=== PATIENT | female | born 1970 | race Caucasian/White ===

== ENCOUNTER 2021-04-27 00:26 | Outpatient (CLI) | payer OTHER, SELFPAY ==
--- NOTE | 2021-04-27 06:30 | DI.MAMMO_ITS ---
Exam(s) MAMMO SCREENING EXAM: MAMMO SCREENING CLINICAL HISTORY: screening,Z12.39 TECHNIQUE: Mammograms were interpreted according to the usual protocol including computer analysis w [employer] CAD system, tomosynthesis and C-view imaging. COMPARISON: 2013 through 2018 [facility] FINDINGS: The breasts are composed of scattered fibroglandular densities, Breast Density category B. No suspicious masses or suspicious microcalcifications are seen. No skin thickening or abnormal axillary lymph nodes are seen. There has been no significant change from prior exams. IMPRESSION: BI-RADS Category 1, Negative mammogram Yearly screening mammography is recommended. Breast Density - Category B, scattered fibroglandular densities. A negative radiographic report should not delay biopsy if a dominant or clinically suspicious mass is present. Up to ten percent of cancers are not identified on mammography. A negative report may reinforce clinical impression. Adenosis and dense breasts may obscure an underlying neoplasm. False positive reports average 6 to 10%. Patient will receive a letter notifying them of these results.
== END 2021-04-27 00:46 ==
PROVIDERS: PCP Student in an Organized Health Care Education/Training Program; Visit Provider Student in an Organized Health Care Education/Training Program
DX: Z12.31 Encounter for screening mammogram for malignant neoplasm of breast (principal)
CPT/HCPCS: 77063; 77067

== ENCOUNTER 2021-05-15 02:01 | Outpatient (CLI) | payer OTHER, SELFPAY ==
[2021-05-15 10:29] LABS: Source Nasal/Nares
[2021-05-15 16:24] LABS: COVID-19 PCR Negative (Negative)
== END 2021-05-15 02:02 | disposition home or self-care (01) ==
LOC: LBO 02:01
PROVIDERS: PCP Student in an Organized Health Care Education/Training Program; Visit Provider Otolaryngology
DX: Z20.822 Contact with and (suspected) exposure to COVID-19 (principal)
CPT/HCPCS: 87635

== ENCOUNTER 2021-05-15 02:13 | Outpatient (CLI) | payer OTHER, SELFPAY ==
[2021-05-15 12:13] LABS: HCT 43.2 % (36.0-46.0); HGB 13.7 g/dL (11.2-15.7); MCH 31.4 pg (27.0-33.0); MCHC 31.7 % (32.0-36.0); MCV 98.9 fL (80-95); MPV 10.6 fL (8.0-11.0); Platelet Count 222 10^3/uL (130-400); RBC 4.37 10^6/uL (3.93-5.22); RDW 12.9 % (11.7-14.6); RDW-SD 47.1 fL; WBC 5.08 10^3/uL (4.4-10.8)
[2021-05-15 12:49] LABS: Vitamin B12 540 pg/mL (193-986)
== END 2021-05-15 02:14 | disposition home or self-care (01) ==
LOC: LOS 02:13
PROVIDERS: PCP Student in an Organized Health Care Education/Training Program; Visit Provider Student in an Organized Health Care Education/Training Program
DX: E03.9 Hypothyroidism, unspecified; K21.9 Gastro-esophageal reflux disease without esophagitis; Z86.2 Personal history of diseases of the blood and blood-forming organs and certain disorders involving the immune mechanism
CPT/HCPCS: 36415; 85027; 82607; 84443

== ENCOUNTER 2021-05-18 06:07 | Day surgery (SDC) | payer OTHER, SELFPAY ==
[2021-05-18] VITALS (10 sets, daily range): BP systolic 80–137; BP diastolic 47–97; PULSE 61–78; RESP 12–16; TEMP 36–36.5; O2SAT 94–99; BMI 37.2
--- NOTE | 2021-05-18 06:49 | W.ANESPRE ---
General Info Date of Service Date Performed: 05/18/21 Height: 5 ft 3 in Weight: 95.3 kg Body Mass Index (BMI): 37.2 Surgical Procedure: Operation Date: 05/18/21 07:40 Proposed Procedures Side Surgeon p Tonsillectomy Jere Persaud DO Meds Allergies and Home Medications Allergies Allergy/AdvReac Type Severity Reaction Status Date / Time No Known Allergies Allergy Verified 05/18/21 06:33 Home Medication Medication Instructions Recorded ferrous gluconate 324 mg (37.5 mg 324 mg PO DAILY 03/06/21 iron) tablet multivitamin 1 tab PO DAILY 03/06/21 omeprazole magnesium 20 mg 20 mg PO DAILY 03/06/21 tablet,delayed release levothyroxine 50 mcg tablet 50 mcg PO DAILY 30 Days #1 tab 04/03/21 cetirizine 10 mg PO DAILY 05/18/21 Current Visit Medications: Current Medications Generic Name Dose Route Start Last Admin Trade Name Freq PRN Reason Stop Dose Admin Ringer's Solution 1,000 mls @ 80 mls/hr 05/18/21 06:00 IV 06/16/21 23:59 INFUSION BRONSON IV Miscellaneous Supplies 1 each 05/18/21 06:00 Iv Access IV 06/16/21 23:59 DIRECTED BRONSON Sodium Chloride 0 ml 05/18/21 06:00 Normal Saline Flush 10 Ml Syr IV 06/16/21 23:59 PRN PRN Sodium Chloride 0 ml 05/18/21 06:00 Normal Saline 10 Ml Vial IJ 06/16/21 23:59 DIRECTED PRN Sterile Water 0 ml 05/18/21 06:00 Water,Injection,Sterile 10 Ml Vial IJ 06/16/21 23:59 DIRECTED PRN PFSH Active Problems Active Problems: Problem Status Onset Code Chronic tonsillitis J35.01 Tonsil stone J35.8 Phlegm in throat R09.89 Family history of premature CAD Z82.49 Menopause Z78.0 Vaginal discharge N89.8 History of iron deficiency anemia Z86.2 GERD (gastroesophageal reflux disease) K21.9 Seasonal allergies 04/01/18 J30.2 Hyperlipidemia E78.5 Hypothyroidism 12/01/19 E03.9 Medical History Medical History Allergic rhinitis Asthma 12/16/16 normal spirometry FVC 104% predicted FEV1 of 105% predicted FEV/FVC 85 with lower limit of normal of 70 ACT score 25 Family history of premature CAD Fa w/ [place] @ 43yo (9 stents) .. now healthy @ 73yo.. Hx hyperchol. History of iron deficiency anemia RBC, HGB WNL, 05/15/21. Iron suppl .. [05/2017: Iron 84 (37-170)][01/2017:Iron 28] [01/2017: Ferritin 5 (264)] Hyperlipidemia started atorvastatin 02/13/17-09/26/17, ? why stopped Hypothyroidism (12/01/19) Recent increase, re-check (6wks) @ 05/18 .. [November 2019: TSH 5.85, FT4 0.91][Mar 2020: TSH 2.34, FT4 1.05, FT3 3.3] Phlegm in throat Thickened Phlegm, with tannish colored pebbly exudate (dissolves into powdery substance)(tonsilith?) + Hx allergies and sinus issues . 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 Surgical History Surgical History History of carpal tunnel surgery (~2010) both wrists Tobacco Smoking/Tobacco Use Status: Former Tobacco Use Tobacco: How many years used: 26 Alcohol Alcohol Intake: current Alcohol intake frequency: a few times a week Alcohol type: beer Substance Use Substance use: Never Substance use type: does not use Vital Signs and Lab Results Vital Signs Most Recent Vital Signs in EMR: Most Recent Vital Signs Temp Pulse Resp BP Pulse Ox 36.3 C L 78 16 128/97 H 97 05/18/21 06:24 05/18/21 06:24 05/18/21 06:24 05/18/21 06:24 05/18/21 06:24 Lab Results Blood Type / Crossmatch: No Data to Display Complete Blood Count: White Blood Count 5.08 10^3/uL (4.4-10.8) 05/15/21 10:13 05/15/21 Red Blood Count 4.37 10^6/uL (3.93-5.22) 05/15/21 10:13 05/15/21 Hemoglobin 13.7 g/dL (11.2-15.7) 05/15/21 10:13 05/15/21 Hematocrit 43.2 % (36.0-46.0) 05/15/21 10:13 05/15/21 Platelet Count 222 10^3/uL (130-400) 05/15/21 10:13 05/15/21 Complete Metabolic Panel: No Data to Display Liver Function Panel: No Data to Display Coagulation Panel: No Data to Display Cardiac Panel: No Data to Display Arterial Blood Gas: No Data to Display Venous Blood Gas: No Data to Display Pancreas Panel: No Data to Display Thyroid Panel: Thyroid Stimulating Hormone (TSH) 1.40 uIU/mL (0.36-3.74) 05/15/21 10:13 05/15/21 Infectious Disease: Coronavirus (COVID-19)(PCR) Negative (Negative) 05/15/21 09:34 05/15/21 Coronavirus 2019 Source Nasal/Nares 05/15/21 09:34 05/15/21 Blood Cultures: No Data to Display Toxicology Panel: No Data to Display Panel: No Data to Display Anesthesia Assessment and Plan Anesthesia History Personal History: No History of Anesthesia Complications Family History: No Family History of Anesthesia Complications Exercise Tolerance Exercise Tolerance: Metabolic Equivalents>4 Pertinent Negatives Pertinent Negatives: No Symptoms of GERD and No Major Cardiovascular Symptoms or Complaints Cardiac & Pulmonary Exam Cardiac Exam: Normal S1/S2 Heart Sounds Pulmonary Exam: Clear Bilateral Breath Sounds Airway Exam Known Difficult Airway: No Mallampati Class: 3 Mouth Opening: Normal (> 3cm) Thyromental Distance: Greater than 3 cm Neck Range of Motion: Full ROM Neck Circumference: Normal Teeth Condition: Normal Dentition ASA Classification ASA Score: ASA 2 Emergency Case?: No NPO Status NPO Status: NPO Clears >2 hours, Solids >8 hours Status Status: Not Relevant due to Medical History Anesthesia Plan Resuscitation Status: Full Code Anesthesia Technique: General Anesthesia Airway Planned: Endotracheal Tube Monitors Used: Standard Monitors
[2021-05-18] MEDS: Lactated Ringers 1,000 ML 80 ML IV (06:53)
--- NOTE | 2021-05-18 07:30 | W.PM.DSUDISC ---
Discharge Plan Disposition Patient Disposition: HOME Condition: Good Discharge Details Reason For Visit: or Attending Provider: Jere Persaud Primary Care Provider: Moraima Bush Home Meds and New Rx's Prescriptions: No Action levothyroxine 50 mcg tablet 50 mcg PO DAILY 30 Days Qty: 1 RF: 3 omeprazole magnesium [Prilosec OTC] 20 mg tablet,delayed release (DR/EC) 20 mg PO DAILY RF: 0 multivitamin Tablet 1 tab PO DAILY RF: 0 ferrous gluconate 324 mg (37.5 mg iron) tablet 324 mg PO DAILY RF: 0 cetirizine 10 mg Tablet 10 mg PO DAILY RF: 0 Discharge Instructions Additional Instructions: see sheet Activity:: Activity as Tolerated Remove Dressings/Wound Care:: 24 hours Shower/Bathe:: 24 hours Diet:: As Tolerated DS: Diagnosis Discharge Diagnosis (1) Chronic tonsillitis: Status: Acute (2) Tonsil stone: Status: Acute
--- NOTE | 2021-05-18 07:31 | ROE_ITS ---
Operative Note Operative Note DATE OF PROCEDURE: 05/18/21 PRE-OP DIAGNOSIS: Chronic tonsil stones, halitosis, chronic tonsillitis POST-OP DIAGNOSIS: same PROCEDURE: Tonsillectomy SURGEON: Jere Persaud ANESTHESIA TYPE: General LMA/ETT Refer to Anesthesia Record ESTIMATED BLOOD LOSS: 2 PATHOLOGY: other (Consult) Indications: Patient seen by my physician biology research assistant, complains of chronic halitosis, tonsil stones and tonsillitis decision made for to proceed with [place]. We discussed preoperatively today. Risk of bleeding is 5 to 10%, importance of hydration, pain control, will provide a small amount of narcotics, the patient wishes to avoid these if possible. We discussed 7 to 14 days of full healing. All of her questions were answered preoperatively, she wishes to proceed Findings: 2+ invaginated tonsils, severe stones bilaterally Procedure Description: PROCEDURE IN DETAIL: Patient was brought back to the operating suite in stable condition, placed supine on the operating table, and intubated in normal fashion. The table was rotated 90 degrees. There was no evidence of submucosal clefting or bifid uvula. The McIvor retractor was placed in the oral cavity and suspended from the Forte stand. The right tonsil was grasped in the superior pole and medialized. Pinpoint cautery was used to develop the peritonsillar fascial plane, dissection was carried out to the upper and mid portions of the tonsil with final amputation conducted with suction cautery. There was no bleeding within the right tonsillar fossa. Next, the left tonsil was grasped in the superior pole with a curved Allis forceps and medialized. Pinpoint cautery was used to develop the peritonsillar fascial plane. Dissection was carried out in the plane in the superior and mid portion of the tonsils. Severe tonsil stones bilaterally, multiple left-sided performed, no bleeding. Final amputation was conducted with suction cautery without bleeding within left fossa, Valsalva was performed without bleeding. TMJ's were checked and were free of dislocation. Gastric contents suctioned. The patient tolerated the procedure well and went to PACU in stable condition
--- NOTE | 2021-05-18 07:55 | TONSIL_PTH ---
PATIENT: Irina Arana LOC: [facility] U#:[id number] AGE/SX: 50/F ROOM: RE05/18/[address]: Jere Persaud DO : 1970 BED: DIS: 05/18/2021 SPEC #: [id number] RECD: 05/18/21 12:44 STATUS: ALEXIS REQ #: [id number] TASNEEM: 05/18/21 07:[address]: Jere Persaud DEPT: Surgical Specimen RECD BY: Roseline Payne ENTERED: 05/18/21 12:46 SP TYPE: TONSIL OTHR DR: Moraima Bush DO Tissues: 1 - TONSIL AGE 17 & OVER 2 - TONSIL AGE 17 & OVER Procedures: GROSS AND MICRO LEVEL 3 Comments: [id number]
[2021-05-18] MEDS: Oxymetazolone 0.05% SPRAY 15 ML BTL (07:58)
[2021-05-18] MEDS: fentaNYL 100 MCG/2 ML VIAL IVP (08:50)
--- NOTE | 2021-05-18 10:24 | W.ANESPOSTOP ---
Postoperative Evaluation Date, Time and Location Date Performed: 05/18/21 Time Performed: 10:24 Patient Location: Day Surgery Unit Vital Signs Most Recent Imported Vital Signs: Most Recent Vital Signs Temp Pulse Resp BP Pulse Ox 36.2 C L 65 16 130/73 94 05/18/21 10:03 05/18/21 10:03 05/18/21 10:03 05/18/21 10:03 05/18/21 10:03 Pain Score Most Recent Pain Score: Most Recent Pain Score Pain Level 2 05/18/21 10:03 Assessment Mental Status: Awake (Alert & Oriented to Patient Baseline) Airway and Respiratory Function: Patent airway with normal (patient baseline) respiratory exam Cardiovascular Function: Hemodynamically Stable Hydration Status: Adequately Hydrated Nausea & Vomiting: No Nausea or Vomiting Pain: Pain is tolerable per patient Peripheral Nerve Block: Patient did not receive a nerve block
== END 2021-05-18 11:22 | disposition home or self-care (01) ==
PROVIDERS: PCP Student in an Organized Health Care Education/Training Program; Visit Provider Otolaryngology Otolaryngology/Facial Plastic Surgery
PROC: (CPT 42826; principal; 2021-05-18 07:30)
DX: J35.01 Chronic tonsillitis (principal); K21.9 Gastro-esophageal reflux disease without esophagitis; E03.9 Hypothyroidism, unspecified; E78.5 Hyperlipidemia, unspecified; J35.8 Other chronic diseases of tonsils and adenoids
CPT/HCPCS: 42826; 88304; J1100; J2250; J2405; J2704; J3010

== ENCOUNTER 2022-10-14 11:14 | Day surgery (SDC) | payer OTHER, SELFPAY ==
--- NOTE | 2022-10-13 20:07 | PDOC.DSDIS_ITS ---
Date of service: 10/14/22 Time of Service: 12:57 Discharge Plan Disposition Patient Disposition: Home Condition: Good Discharge Details Reason For Visit: Screening colonoscopy Attending Provider: Constantin Phan Primary Care Provider: Moraima Bush Home Meds and New Rx's Prescriptions: Continued estradiol [Estrace] 0.01 % (0.1 mg/gram) cream 0.5 appful vaginal .COMPLEX Qty: 42.5 4RF Rx Instructions: 0.5 appful vaginal daily for 2 weeks then twice weekly; clobetasol 0.05 % ointment 1 applic topical .COMPLEX Qty: 45 4RF Rx Instructions: 1 applic topical tiny amount to painful areas on vulva daily for 2 weeks then twice weekly; levothyroxine 75 mcg tablet 75 mcg PO DAILY Qty: 90 1RF albuterol sulfate [Proventil HFA] 90 mcg/actuation HFA aerosol inhaler 2 puff inhalation Q6H PRN (Reason: shortness of breath or wheezing) Qty: 8.5 0RF omeprazole magnesium [Prilosec OTC] 20 mg tablet,delayed release (DR/EC) 20 mg PO DAILY multivitamin Tablet 1 tab PO DAILY ferrous gluconate 324 mg (37.5 mg iron) tablet 324 mg PO DAILY cetirizine 10 mg Tablet 10 mg PO DAILY Discontinued polyethylene glycol 3350 17 gram/dose powder 238 g PO ONCE Qty: 238 0RF Rx Instructions: take per colonoscopy instructions bisacodyl [Dulcolax (bisacodyl)] 5 mg tablet,delayed release (DR/EC) 5 mg PO ONCE Qty: 4 0RF Rx Instructions: take per colonoscopy instructions Discharge Instructions Additional Instructions: 1. If tolerated, consume a soft, low fiber diet for 1-2 days. 2[address] Do not drive, drink alcohol, operate machinery, make critical decisions, or do activities that require coordination or balance for 24 hours. 3. Because air was put into your colon during the procedure, expelling air from your rectum (passing gas or farting) is normal. 4. You may not have a bowel movement for 1-3 days because of the colonoscopy pr ep. This is normal. 5. Go directly to the emergency room if you notice any of the following: Develop chills (warm to touch), or if you have a thermometer and your temperature is above 101 Difficulty breathing or difficultly swallowing Persistent vomiting Severe abdominal pain, other than gas cramps Severe chest pain Black, tarry stools Any bleeding ? exceeding one tablespoon 6. Call your physician if the site where your intravenous was started becomes red, swollen, painful, and warm to touch. 7. Your physician has reviewed your pre-procedure medications. Please continue to take those medications as previously ordered. You will be given specific information/education regarding any changes to your medications before leaving. Activity:: Activity as Tolerated Diet:: As Tolerated Discharge Orders Discharge Orders: Discharge Order (Routine); Ordered 10/13/22 Ordered By: Constantin Phan DS: Diagnosis Discharge Diagnosis (1) Screening for colon cancer: Status: Acute Asessment and Plan: I will follow-up on polypectomy results
--- NOTE | 2022-10-13 20:09 | W.COLOREPORT ---
Date of service: 10/14/22 Time of Service: 12:59 Colonoscopy Report Date of procedure: 10/14/22 Pre-op diagnosis general: Screening colonoscopy Post-op diagnosis procedure note: other (Colon polyps) Procedure: Colonoscopy with polypectomy Surgeon: Constantin Phan Anesthesia Type: General:No Airway Estimated blood loss (mL): 10 Pathology: other (Ascending colon polyp, polyp at 40 cm) Complications: None Disposition: same day Indications: Irina is a 51 year old women here for her first screening colonscopy Prep: Miralax/Dulcolax Procedure Start Time: 12:29 Procedure End Time: 12:51 Retraction Time: 12 Findings: A sending colonic polyp, polyp at 40 cm Procedure Description: After the induction of monitored anesthetic care, and with the patient in left lateral decubitus position, I began by performing an external anorectal exam.? Perineum and skin were normal, as was the anal verge.? There was no no evidence of external hemorrhoids.? Next, I performed a digital rectal exam.? I did not appreciate any abnormal findings.? Next, I advanced a colonoscope into the rectal vault.? I performed retroflexion.? This appeared normal.? Using insufflation, I then advanced the colonoscope beyond the rectal folds and into the sigmoid colon before advancing towards the cecum.? The quality of the prep was excellent.? The scope was noted to be in the cecum by identification of the ileocecal valve and appendiceal orifice.? I then began withdrawing the colonoscope using repeated irrigation as necessary for full evaluation of the colonic mucosa. Within the ascending colon was a 0.5 cm pedunculated polyp. I retrieved this with cold snare polypectomy. There was minimal bleeding. Similarly, I found a polyp at 40 cm from the anal verge. I remove this with cold forceps polypectomy. I estimated to be 0.25 cm and sessile in character. Once the scope was withdrawn to the level of the rectum, great care was taken to examine portions of the rectal folds.? Finally, the scope was withdrawn and the patient was brought to the same-day surgery recovery unit as the anesthetic wore off. ?The findings and instructions were shared with the patient prior to discharge.
[2022-10-14 11:39] VITALS: BP 146/97; PULSE 77; RESP 16; TEMP 36.4; O2SAT 97
--- NOTE | 2022-10-14 11:50 | ANES.PREOP_ITS ---
General Info Date of Service Date Performed: 10/14/22 Height: 5 ft 3 in Weight: 99.79 kg Body Mass Index (BMI): 38.9 Surgical Procedure: Operation Date: 10/14/22 12:35 Proposed Procedure Side Surgeon lillie Phan MD Meds Allergies and Home Medications Allergies Allergy/AdvReac Type Severity Reaction Status Date / Time No Known Allergies Allergy Verified 10/14/22 11:37 Home Medication Medication Instructions Recorded ferrous gluconate 324 mg (37.5 mg 324 mg PO DAILY 03/06/21 iron) tablet multivitamin 1 tab PO DAILY 03/06/21 omeprazole magnesium 20 mg 20 mg PO DAILY 03/06/21 tablet,delayed release (Prilosec OTC) cetirizine 10 mg tablet 10 mg PO DAILY 05/18/21 albuterol sulfate 90 mcg/actuation 2 puff inhalation Q6H PRN 12/11/21 aerosol inhaler (Proventil HFA) shortness of breath or wheezing #8.5 grams clobetasol 0.05 % topical ointment 1 applic topical .COMPLEX #45 grams 05/31/22 estradiol 0.01% (0.1 mg/gram) 0.5 appful vaginal .COMPLEX #42.5 05/31/22 vaginal cream (Estrace) grams levothyroxine 75 mcg tablet 75 mcg PO DAILY #90 tabs 05/31/22 Current Visit Medications: Current Medications Generic Name Dose Route Start Last Admin Trade Name Freq PRN Reason Stop Dose Admin Hyoscyamine Sulfate 0.125 mg 10/13/22 20:10 Hyoscyamine 0.125 Mg Sl/Oral/Chew SL DIRECTED PRN Ringer's Solution 1,000 mls @ 80 mls/hr 10/14/22 06:00 IV 10/14/22 23:59 INFUSION BRONSON IV Miscellaneous Supplies 1 each 10/14/22 06:00 Iv Access IV 10/14/22 23:59 DIRECTED BRONSON Ondansetron HCl 4 mg 10/13/22 20:10 Ondansetron 4 Mg/2 Ml Vial IVP Q4H PRN PRN Nausea / Vomiting Sodium Chloride 0 ml 10/14/22 06:00 Normal Saline Flush 10 Ml Syr IV 10/14/22 23:59 PRN PRN Sodium Chloride 0 ml 10/14/22 06:00 Normal Saline 10 Ml Vial IJ 10/14/22 23:59 DIRECTED PRN Sterile Water 0 ml 10/14/22 06:00 Water,Injection,Sterile 10 Ml Vial IJ 10/14/22 23:59 DIRECTED PRN PFSH Active Problems Active Problems: Problem Status Onset Code Screening for colon cancer Z12.11 Lichen sclerosus L90.0 Perimenopausal atrophic vaginitis N95.2 Chronic tonsillitis J35.01 Tonsil stone J35.8 Phlegm in throat R09.89 Family history of premature CAD Z82.49 Menopause Z78.0 Vaginal discharge N89.8 History of iron deficiency anemia Z86.2 GERD (gastroesophageal reflux disease) K21.9 Seasonal allergies 04/01/18 J30.2 Hyperlipidemia E78.5 Hypothyroidism 12/01/19 E03.9 Medical History Medical History Allergic rhinitis Asthma 12/16/16 normal spirometry FVC 104% predicted FEV1 of 105% predicted FEV/FVC 85 with lower limit of normal of 70 ACT score 25 Surgical History Surgical History History of carpal tunnel surgery (~2010) both wrists S/P tonsillectomy (05/18/21) Dr Persaud Tobacco Smoking/Tobacco Use Status: Former Tobacco Use Alcohol Alcohol Intake: current Alcohol intake frequency: a few times a week Alcohol type: beer Substance Use Substance use: Never Substance use type: does not use Prental History History 2 Para 2 Hx # Term Pregnancies 2 Multiple births Hx # Pregnancies Ectopic pregnancies AB induced Hx Number of Living Children AB spontaneous Vital Signs and Lab Results Vital Signs Most Recent Vital Signs in EMR: Most Recent Vital Signs Temp Pulse Resp BP Pulse Ox 36.4 C L 77 16 146/97 H 97 10/14/22 11:39 10/14/22 11:39 10/14/22 11:39 10/14/22 11:39 10/14/22 11:39 Lab Results Blood Type / Crossmatch: No Data to Display Complete Blood Count: No Data to Display Complete Metabolic Panel: No Data to Display Liver Function Panel: No Data to Display Coagulation Panel: No Data to Display Cardiac Panel: No Data to Display Arterial Blood Gas: No Data to Display Venous Blood Gas: No Data to Display Pancreas Panel: No Data to Display Thyroid Panel: No Data to Display Infectious Disease: No Data to Display Blood Cultures: No Data to Display Toxicology Panel: 2 No Data to Display Panel: No Data to Display Anesthesia Assessment and Plan Anesthesia History Personal History: No History of Anesthesia Complications Family History: No Family History of Anesthesia Complications Exercise Tolerance Exercise Tolerance: Metabolic Equivalents>4 Pertinent Negatives Pertinent Negatives: No Symptoms of GERD, No Major Cardiovascular Symptoms or Complaints, No Major Pulmonary Symptoms or Complaints and No History of CVA/TIA Cardiac & Pulmonary Exam Cardiac Exam: Normal S1/S2 Heart Sounds Pulmonary Exam: Clear Bilateral Breath Sounds Implantable Cardiac Device Does patient have a Pacemaker or an ICD?: No Airway Exam Known Difficult Airway: No Mallampati Class: 3 Mouth Opening: Normal (> 3cm) Thyromental Distance: Greater than 3 cm Neck Range of Motion: Full ROM Neck Circumference: Normal Teeth Condition: Normal Dentition ASA Classification ASA Score: ASA 3 Emergency Case?: No NPO Status NPO Status: NPO Clears >2 hours, Solids >8 hours Status Status: Not Relevant due to Medical History Anesthesia Plan Resuscitation Status: Full Code Anesthesia Technique: General Anesthesia Airway Planned: Natural Airway Monitors Used: Standard Monitors
[2022-10-14 12:00] VITALS: BMI 38.9
[2022-10-14] MEDS: Lactated Ringers 1,000 ML 80 ML IV (12:11)
--- NOTE | 2022-10-14 12:40 | BOWEL_PTH ---
PATIENT: Irina Arana LOC: [facility] U#:[id number] AGE/SX: 51/F ROOM: RE10/14/[address]: Constantin Phan MD : 1970 BED: DIS: 10/14/2022 SPEC #: [id number] RECD: 10/14/22 18:16 STATUS: LUIS ELyly RE #: [id number] TASNEEM: 10/14/22 12:[address]: Constantin Phan DEPT: Surgical Specimen RECD BY: Roseline Payne ENTERED: 10/14/22 18:17 SP TYPE: Bowel OTHR DR: Moraima Bush DO Tissues: 1 - BIOPSY BOWEL 2 - BIOPSY BOWEL Procedures: GROSS AND MICRO LEVEL 4 Comments: [id number]
[2022-10-14 12:56] VITALS: BP 135/88; PULSE 77; RESP 16; TEMP 36.5; O2SAT 97
--- NOTE | 2022-10-14 13:13 | W.ANESPOSTOP ---
Postoperative Evaluation Date, Time and Location Date Performed: 10/14/22 Time Performed: 13:13 Patient Location: Day Surgery Unit Vital Signs Most Recent Imported Vital Signs: Most Recent Vital Signs Temp Pulse Resp BP Pulse Ox 36.5 C 77 16 135/88 97 10/14/22 12:56 10/14/22 12:56 10/14/22 12:56 10/14/22 12:56 10/14/22 12:56 Pain Score Most Recent Pain Score: Most Recent Pain Score Pain Level 0 10/14/22 12:56 Assessment Mental Status: Awake (Alert & Oriented to Patient Baseline) Airway and Respiratory Function: Patent airway with normal (patient baseline) respiratory exam Cardiovascular Function: Hemodynamically Stable Hydration Status: Adequately Hydrated Nausea & Vomiting: No Nausea or Vomiting Pain: Pt. Denies Any Pain Peripheral Nerve Block: Patient did not receive a nerve block
[2022-10-14 13:25] VITALS: BP 140/89; PULSE 74; RESP 16; TEMP 36.6; O2SAT 96
== END 2022-10-14 13:33 | disposition home or self-care (01) ==
PROVIDERS: PCP Student in an Organized Health Care Education/Training Program; Visit Provider Surgery
PROC: 0DJD8ZZ Inspection of Lower Intestinal Tract, Via Natural or Artificial Opening Endoscopic (ICD-10-PCS; CPT 45378; principal; 2022-10-14 12:30)
DX: Z12.11 Encounter for screening for malignant neoplasm of colon (principal); K63.5 Polyp of colon
CPT/HCPCS: 45385; 88305; J2405

== ENCOUNTER → 2023-05-23 02:55 | Outpatient (CLI) | payer OTHER, SELFPAY ==
--- NOTE | 2023-05-23 07:45 | DI.DEXA_ITS ---
Exam(s) XR DEXA BONE DENSITY W/WO YOON EXAM: XR DEXA BONE DENSITY W/WO YOON CLINICAL HISTORY: Evaluate bone density,screening for osteoporosis in postmenopausal woman, TECHNIQUE: Routine DEXA evaluation of the lumbar spine, hip, or forearm. COMPARISON: No exams were available for comparison FINDINGS: Performed on a Hologic unit. Lateral image: No compression fracture evident. Lumbar Spine total T-score: -0.2 Hip total T-score:-0.3 Independent reading at the level of the femoral neck yields T-score of -1.1 Forearm total T-score: 0.3 IMPRESSION: Bone mineral density measures in the osteopenia range because of the femoral neck score. Fracture ri sk is moderate. Note: Any spine fracture indicates 5x risk for subsequent spine fracture and 2x risk for subsequent h ip fracture. World Health Organization criteria for BMD interpretation classify patients: Normal...... T- Score at or above -1.0 Osteopenic... T- Score between -1.0 and -2.5 Osteoporosis... T-Score at or below -2.5
--- NOTE | 2023-05-23 07:45 | DI.MAMMO_ITS ---
Exam(s) MAMMO SCREENING EXAM: MAMMO SCREENING CLINICAL HISTORY: screening,z12.39 TECHNIQUE: Mammograms were interpreted according to the usual protocol including computer analysis w Meta[employer] CAD system, tomosynthesis and C-view imaging. COMPARISON: 2013 through 2020 FINDINGS: The breasts are composed of scattered fibroglandular densities, Breast Density category B. No suspicious masses or suspicious microcalcifications are seen. No skin thickening or abnormal axillary lymph nodes are seen. There has been no significant change from prior exams. IMPRESSION: BI-RADS Category 1, Negative mammogram Yearly screening mammography is recommended. Breast Density - Category B, scattered fibroglandular densities. A negative radiographic report should not delay biopsy if a dominant or clinically suspicious mass is present. Up to ten percent of cancers are not identified on mammography. A negative report may reinforce clinical impression. Adenosis and dense breasts may obscure an underlying neoplasm. False positive reports average 6 to 10%. Patient will receive a letter notifying them of these results.
== END ==
PROVIDERS: PCP Student in an Organized Health Care Education/Training Program; Visit Provider Student in an Organized Health Care Education/Training Program
DX: Z12.31 Encounter for screening mammogram for malignant neoplasm of breast (principal); Z78.0 Asymptomatic menopausal state; Z13.820 Encounter for screening for osteoporosis; M85.89 Other specified disorders of bone density and structure, multiple sites
CPT/HCPCS: 77063; 77067; 77080

== ENCOUNTER 2023-06-20 09:47 | Outpatient (CLI) | payer OTHER, SELFPAY ==
--- NOTE | 2023-06-20 09:45 | RT.EKG_ITS ---
APPROVED REPORT Exam: Resting ECG Reason for Exam: Baseline Patient Location: O HR:69 bpm ECG Measurements Heart Rate 69 AXIS ID 175 P 0 QRSd 95 QRS 2 QT 394 T 3 QTc 422 Conclusion Sinus rhythm...normal P axis, V-rate 50- 99 Normal Electrocardiogram
== END 2023-06-20 09:48 | disposition home or self-care (01) ==
LOC: DI.KIM 09:54
PROVIDERS: PCP Student in an Organized Health Care Education/Training Program; Visit Provider Student in an Organized Health Care Education/Training Program
DX: Z82.49 Family history of ischemic heart disease and other diseases of the circulatory system (principal); Z13.6 Encounter for screening for cardiovascular disorders
CPT/HCPCS: 93010

== ENCOUNTER 2023-06-20 12:37 | Outpatient (REF) | payer OTHER, SELFPAY ==
--- NOTE | 2023-06-20 11:00 | PAPFT_PTH ---
PATIENT: Irina Arana LOC: [facility] U#:[id number] AGE/SX: 52/F ROOM: RE06/20/[address]: Alicia Melgar DO : 1970 BED: DIS: 06/20/2023 SPEC #: [id number] RECD: 06/20/23 12:58 STATUS: ALEXIS REQ #: [id number] TASNEEM: 06/20/23 11:[address]: Alicia Melgar DEPT: [facility] Cytology RECD BY: Roseline Payne ENTERED: 06/20/23 12:58 SP TYPE: PAPFT OTHR DR: Moraima Bush DO Tissues: 1 - CX/ENDOCX FOR PAP SMEARS Procedures: PAP THIN PREP/UVM Screening HPV DNA PROBE Comments: [id number]
== END 2023-06-20 12:38 | disposition home or self-care (01) ==
LOC: LBN 12:37
PROVIDERS: PCP Student in an Organized Health Care Education/Training Program; Visit Provider Obstetrics & Gynecology
DX: Z12.4 Encounter for screening for malignant neoplasm of cervix (principal)
CPT/HCPCS: 88142; 87624

== ENCOUNTER 2024-02-20 07:08 | Day surgery (SDC) | payer OTHER, SELFPAY ==
--- NOTE | 2024-02-19 19:47 | ENDO_ITS ---
Date of service: 02/20/24 Time of Service: : Endoscopy Report DATE OF PROCEDURE: 02/20/24 PRE-OP DIAGNOSIS: gerd/amemia POST-OP DIAGNOSIS: other (Minor changes from chronic reflux at the GE junction and possible Ken's path pending/large pedunculated adenomatous polyp at the pylorus) SURGEON: Malou Srivastava ANESTHESIA TYPE: General:No Airway ESTIMATED BLOOD LOSS: 2 PATHOLOGY: other COMPLICATIONS: None DISPOSITION: same day PROCEDURE DESCRIPTION: Informed consent was obtained from the pt; explaining the benefits and Risks: bleeding, infections, perforations {which could require surgery or antibiotics and prolonged hospital stay}, or ostomy, and complications of anaesthesia, xochilt aspiration). The patient was take to the procedure room and placed in a supine position. Monitors were applied and a time out was done. The patients name, date of , procedure type, allergies to medications and metal in their body was reviewed. A bite block was placed and the patient was sedated. Once sedated and comfortable an Olympus gastroscope (see RN notes for scope #) was advanced through the oropharynx which was grossly normal, and passed into the esophagus. The proximal and mid-esophagus were normal. The distal esophagus does not show any: dilation/strictures/varices/erosions or ulcers/bleeding noted. There is a small 0.5 cm tongue of what could be Ken's at the 1 o'clock position. Biopsies taken of this. The scope was advanced into the stomach and through the pylorus into the proximal jejunum. A bx is taken for celiac Dx . The duodenum was noted to be normal. Biopsies were done of the duodenal bulb.. The scope was retracted back into the stomach and biopsies were taken of the antrum. She does have a 1 cm pedunculated polyp that is in the pylorus but more on the gastric side. Multiple biopsies are taken of this. It does appear to be adenomatous. It is quite friable and bleeds readily. There were no gastritis/gastropathy/ ulcers/masses noted. The scope was retroflexed. The cardia and fundus were noted to be normal. The hiatus has a slight amount of patulousness to it. There is no gastric herniation noted at this time. The scope was retracted back into the esophagus and biopsies were done of the GE junction (in all 4 quadrants) and distal esophagus (2cm above the GE junction) to rule out Ken's. All specimens are retrieved and no bleeding was noted. The Z line was regular. The GE junction was at 38 cm. The scope was removed and the patient was woken up and taken back to [facility] in stable condition.
--- NOTE | 2024-02-19 19:48 | W.PM.DSUDISC ---
Date of service: 02/20/24 Time of Service: 09:20 Discharge Plan Disposition Patient Disposition: Home Discharge Details Reason For Visit: Stomach scope Attending Provider: Malou Srivastava Primary Care Provider: Moraima Bush Home Meds and New Rx's Prescriptions: No Action estradiol [Estrace] 0.01 % (0.1 mg/gram) cream 0.5 appful vaginal .COMPLEX Qty: 42.5 4RF Rx Instructions: 0.5 appful vaginal daily for 2 weeks then twice weekly; ferrous sulfate 325 mg (65 mg iron) tablet 325 mg PO DAILY cholecalciferol (vitamin D3) 25 mcg (1,000 unit) capsule 25 mcg PO DAILY omeprazole magnesium [Prilosec OTC] 20 mg tablet,delayed release (DR/EC) 20 mg PO DAILY multivitamin Tablet 1 tab PO DAILY albuterol sulfate [Proventil HFA] 90 mcg/actuation HFA aerosol inhaler 2 puff inhalation Q6H PRN (Reason: shortness of breath or wheezing) Qty: 8.5 0RF levothyroxine 75 mcg tablet 75 mcg PO DAILY Qty: 90 3RF clobetasol 0.05 % ointment See Rx Instructions .ROUTE .COMPLEX Qty: 60 1RF Dose Instruction: APPLY TO AFFECTED AREA TOPICALLY TWO TIMES A DAY Rx Instructions: APPLY TO AFFECTED AREA TOPICALLY TWO TIMES A DAY cetirizine 10 mg Tablet 10 mg PO DAILY Discharge Instructions Additional Instructions: Post EGD Instruction ?You had anesthesia for your EGD/stomach scope today.? For your safety, please do the following for the next twenty-four (24) hours: Do Not operate a motor vehicle (car, truck, motorcycle, etc.) Do Not drink alcoholic beverages or use any recreational drugs for the first 24 hours or while taking pain medications. The medications in your body may have a reaction that can be dangerous. Do Not make any important decisions or sign any important papers You have just had a gastroscopy (EGD) or upper GI tract examination. It is important for your smooth recovery that you carefully follow the recommendations below. Do not hesitate to call if any questions should arise about your anesthesia, condition, or care. -Symptoms you may experience during the next 24 hours: ?1. Mild abdominal pain or excessive gas or a bloated feeling which improves with rest, liquids, eating? slightly, and walking as tolerated. 2. Drowsiness and/or forgetfulness because of the medications you were given. 3. A sore throat which you can treat with throat lozenges or by gargling with salt water 4-5 times a day. 4. Redness at the site of your IV which you can treat with warm compresses. SPECIAL INSTRUCTIONS: 1. You may resume your previous diet in one hour. We recommend a light meal to start, then progress as tolerated. 2. Restart regular medications in one hour. 3. No aspirin or non-steroidal containing medication for 24 hrs. 4. No lifting over 20 pounds or strenuous activity for the first 24 hours after your procedure. After 24 hours there are no restrictions on your activity, but you may feel fatigued for a few days. -Findings: Gastric polyp/minor findings from chronic reflux. Path pending Follow-up in 2 weeks to review pathology report -Medications: Continue omeprazole and iron supplementation for now -Continue to follow lifestyle modifications: No alcohol, tobacco products, Aspirin or NSAID's (ibuprofen, Motrin, Naprosyn, aleve, etc).? Try to limit/avoid:? soda pop/any carbonated beverages, caffeine (including tea & chocolate), and acidic foods, (tomatoes, citrus, onions, peppermints) spicy or fried/fatty foods. Do not lie down for 30 minutes after eating, and do not eat 2 hours prior to bedtime. Avoid wearing tight fitting clothing/ belts. Follow up: -My office will send a letter with the results of your biopsy?s in 2-3wks time. Call the office at [phone] (Office) or [phone] (Hospital), or go to the ER right away if you notice any of the followin. Vomiting blood and /or ?coffee ground? material. ?2. Worsening of abdominal pain or cramping. ?3. Trouble with breathing, cough, and/or fever (temperature above 101.5 F). 4. Increasing pain with swallowing. ?5. Chest pain. 6. Any new symptoms. 7. Worsening of the redness at the IV site Stand Alone Forms: Anesthesia Discharge [facility] [place] ([facility]) Activity:: See above Diet:: See above Discharge Orders Discharge Orders: Discharge Order (Routine); Ordered 02/20/24 Ordered By: Malou Srivastava DS: Diagnosis Discharge Diagnosis (1) Hyperlipidemia: Status: Acute (2) Hypothyroidism: Status: Chronic (3) Seasonal allergies: Status: Chronic (4) GERD (gastroesophageal reflux disease): Status: Chronic Asessment and Plan: Possible Ken's visualized today. Path pending (5) History of iron deficiency anemia: Status: Chronic (6) Lipoma of forearm: Status: Acute (7) Osteopenia of femoral neck: Status: Acute (8) Asthma: (9) Adenomatous polyp of stomach: Status: Acute
[2024-02-20 07:17] VITALS: BP 125/91; PULSE 70; RESP 16; TEMP 36.5; O2SAT 97
[2024-02-20] MEDS: Lactated Ringers 1,000 ML 80 ML IV (07:39)
--- NOTE | 2024-02-20 08:07 | W.ANESPRE ---
General Info Date of Service Date Performed: 02/20/24 Height: 5 ft 3 in Weight: 96.8 kg Body Mass Index (BMI): 37.8 Surgical Procedure: Operation Date: 02/20/24 08:20 Proposed Procedure Side Surgeon p Gastroscopy Malou Srivastava, DO Meds Allergies and Home Medications Allergies Allergy/AdvReac Type Severity Reaction Status Date / Time No Known Allergies Allergy Verified 02/20/24 07:36 Home Medication ?Medication ?Instructions ?Recorded multivitamin 1 tab PO DAILY 03/06/21 omeprazole magnesium 20 mg 20 mg PO DAILY 03/06/21 tablet,delayed release (Prilosec OTC) cetirizine 10 mg tablet 10 mg PO DAILY 05/18/21 albuterol sulfate 90 mcg/actuation 2 puff inhalation Q6H PRN 03/15/23 aerosol inhaler (Proventil HFA) shortness of breath or wheezing #8.5 grams estradiol 0.01% (0.1 mg/gram) 0.5 appful vaginal .COMPLEX #42.5 06/20/23 vaginal cream (Estrace) grams ferrous sulfate 325 mg (65 mg 325 mg PO DAILY 09/18/23 iron) tablet levothyroxine 75 mcg tablet 75 mcg PO DAILY #90 tabs 11/14/23 cholecalciferol (vitamin D3) 25 25 mcg PO DAILY 01/29/24 mcg (1,000 unit) capsule clobetasol 0.05 % topical ointment See Rx Instructions .Route 02/16/24 .COMPLEX #60 grams Current Visit Medications: Current Medications Generic Name Dose Route Start Last Admin Trade Name Freq PRN Reason Stop Dose Admin Hyoscyamine Sulfate 0.125 mg 02/20/24 06:00 Hyoscyamine 0.125 Mg Sl/Oral/Chew SL 02/20/24 16:00 DIRECTED PRN Ringer's Solution 1,000 mls @ 80 mls/hr 02/20/24 06:00 02/20/24 07:39 IV 03/20/24 23:59 80 mls/hr INFUSION BRONSON Administration IV Miscellaneous Supplies 1 each 02/20/24 06:00 Iv Access IV 03/20/24 23:59 DIRECTED BRONSON Ondansetron HCl 4 mg 02/20/24 06:00 Ondansetron 4 Mg/2 Ml Vial IVP 02/20/24 16:00 Q4H PRN PRN Nausea / Vomiting Sodium Chloride 0 ml 02/20/24 06:00 Normal Saline Flush 10 Ml Syr IV 03/20/24 23:59 PRN PRN Sodium Chloride 0 ml 02/20/24 06:00 Normal Saline 10 Ml Vial IJ 03/20/24 23:59 DIRECTED PRN Sterile Water 0 ml 02/20/24 06:00 Water,Injection,Sterile 10 Ml Vial IJ 03/20/24 23:59 DIRECTED PRN PFSH Active Problems Active Problems: Problem Status Onset Code Blood donor Acute Z52.008 Low iron stores Acute R79.0 Lipoma of forearm Acute D17.20 Well woman exam with routine gynecological exam Acute Z01.419 Osteopenia of femoral neck Acute M85.859 Lichen sclerosus Acute L90.0 Perimenopausal atrophic vaginitis Acute N95.2 Family history of premature CAD Chronic Z82.49 Menopause Chronic Z78.0 Vaginal discharge Acute N89.8 History of iron deficiency anemia Chronic Z86.2 GERD (gastroesophageal reflux disease) Chronic K21.9 Seasonal allergies Chronic 04/01/18 J30.2 Hyperlipidemia Acute E78.5 Hypothyroidism Chronic 12/01/19 E03.9 Medical History Medical History Tubular adenoma (~10/14/22) Dr. Sylvester Tinoco Chronic tonsillitis s/p tonsillectomy, 05/2021 Tonsil stone resolved, Hx .. now s/p tonsillectomy Phlegm in throat Thickened Phlegm, with tannish colored pebbly exudate (dissolves into powdery substance)(tonsilith?) + Hx allergies and sinus issues . [ ] ENT Allergic rhinitis Asthma 12/16/16 normal spirometry FVC 104% predicted FEV1 of 105% predicted FEV/FVC 85 with lower limit of normal of 70 ACT score 25 Medical History Comments:: pt reports she was told she took longer to wake up after her tonsils, but otherwise no complications from anesthesia Surgical History Surgical History History of colonoscopy with polypectomy (~10/14/22) S/P tonsillectomy (05/18/21) Dr Persaud History of carpal tunnel surgery (~2010) both wrists Tobacco Smoking/Tobacco Use Status: Former Tobacco Use Alcohol Alcohol Intake: current Alcohol intake frequency: a few times a week Alcohol type: beer Substance Use Substance use: Never Substance use type: does not use Prental History History 2 Para 2 Hx # Term Pregnancies 2 Multiple births Hx # Pregnancies Ectopic pregnancies AB induced Hx Number of Living Children AB spontaneous Vital Signs and Lab Results Vital Signs Most Recent Vital Signs in EMR: Most Recent Vital Signs Temp Pulse Resp BP Pulse Ox 36.5 C 70 16 125/91 H 97 02/20/24 07:17 02/20/24 07:17 02/20/24 07:17 02/20/24 07:17 02/20/24 07:17 Lab Results Blood Type / Crossmatch: No Data to Display Complete Blood Count: No Data to Display Complete Metabolic Panel: No Data to Display Liver Function Panel: No Data to Display Coagulation Panel: No Data to Display Cardiac Panel: No Data to Display Arterial Blood Gas: No Data to Display Venous Blood Gas: No Data to Display Pancreas Panel: No Data to Display Thyroid Panel: No Data to Display Infectious Disease: No Data to Display Blood Cultures: No Data to Display Toxicology Panel: No Data to Display Anesthesia Assessment and Plan Anesthesia History Personal History: Delayed Emergence Family History: No Family History of Anesthesia Complications Exercise Tolerance Exercise Tolerance: Metabolic Equivalents>4 Pertinent Negatives Pertinent Negatives: No Symptoms of GERD Cardiac & Pulmonary Exam Cardiac Exam: Normal S1/S2 Heart Sounds Pulmonary Exam: Clear Bilateral Breath Sounds Implantable Cardiac Device Does patient have a Pacemaker or an ICD?: No Airway Exam Known Difficult Airway: No Mallampati Class: 3 Mouth Opening: Normal (> 3cm) Thyromental Distance: Greater than 3 cm Neck Range of Motion: Full ROM Neck Circumference: Normal Teeth Condition: Normal Dentition ASA Classification ASA Score: ASA 2 Emergency Case?: No NPO Status NPO Status: NPO Clears >2 hours, Solids >8 hours Anesthesia Plan Resuscitation Status: Full Code Anesthesia Technique: General Anesthesia Airway Planned: Natural Airway Monitors Used: Standard Monitors
[2024-02-20 08:09] VITALS: BMI 37.8
--- NOTE | 2024-02-20 08:55 | BOWEL_PTH ---
PATIENT: Irina Arana LOC: [facility] U#:[id number] AGE/SX: 53/F ROOM: RE02/20/[address]: Malou Srivastava : 1970 BED: DIS: 02/20/2024 SPEC #: [id number] RECD: 02/20/24 11:31 STATUS: ALEXIS RELexx #: [id number] TASNEEM: 02/20/24 08:[address]: Malou Srivastava DEPT: Surgical Specimen RECD BY: Dagmar Sears ENTERED: 02/20/24 11:45 SP TYPE: Bowel OTHR DR: Moraima Bush DO Tissues: 1 - BIOPSY BOWEL 2 - STOMACH BIOPSY 3 - STOMACH BIOPSY 4 - STOMACH BIOPSY 5 - STOMACH BIOPSY 6 - ESOPHAGUS BIOPSY 7 - ESOPHAGUS BIOPSY Procedures: GROSS AND MICRO LEVEL 4 Comments: [id number]
[2024-02-20 09:17] VITALS: BP 119/77; PULSE 80; RESP 16; TEMP 35.7; O2SAT 92
--- NOTE | 2024-02-20 09:28 | W.ANESPOSTOP ---
Postoperative Evaluation Date, Time and Location Date Performed: 02/20/24 Time Performed: :28 Patient Location: Day Surgery Unit Vital Signs Most Recent Imported Vital Signs: Most Recent Vital Signs Temp Pulse Resp BP Pulse Ox 35.7 C L 80 16 119/77 92 02/20/24 09:17 02/20/24 09:17 02/20/24 09:17 02/20/24 09:17 02/20/24 09:17 Pain Score Most Recent Pain Score: Most Recent Pain Score Pain Level 0 02/20/24 09:17 Assessment Mental Status: Awake (Alert & Oriented to Patient Baseline) Airway and Respiratory Function: Patent airway with normal (patient baseline) respiratory exam Cardiovascular Function: Hemodynamically Stable Hydration Status: Adequately Hydrated Nausea & Vomiting: No Nausea or Vomiting Pain: Pt. Denies Any Pain Peripheral Nerve Block: Patient did not receive a nerve block
[2024-02-20 09:49] VITALS: BP 107/80; PULSE 66; RESP 16; TEMP 36; O2SAT 98
--- NOTE | 2024-02-20 10:16 | W.PM.DSUDISC ---
Date of service: 02/20/24 Time of Service: 10:17 Discharge Plan Disposition Patient Disposition: Home Discharge Details Reason For Visit: Stomach scope Attending Provider: Malou Srivastava Primary Care Provider: Moraima Bush Home Meds and New Rx's Prescriptions: No Action estradiol [Estrace] 0.01 % (0.1 mg/gram) cream 0.5 appful vaginal .COMPLEX Qty: 42.5 4RF Rx Instructions: 0.5 appful vaginal daily for 2 weeks then twice weekly; ferrous sulfate 325 mg (65 mg iron) tablet 325 mg PO DAILY cholecalciferol (vitamin D3) 25 mcg (1,000 unit) capsule 25 mcg PO DAILY omeprazole magnesium [Prilosec OTC] 20 mg tablet,delayed release (DR/EC) 20 mg PO DAILY multivitamin Tablet 1 tab PO DAILY albuterol sulfate [Proventil HFA] 90 mcg/actuation HFA aerosol inhaler 2 puff inhalation Q6H PRN (Reason: shortness of breath or wheezing) Qty: 8.5 0RF levothyroxine 75 mcg tablet 75 mcg PO DAILY Qty: 90 3RF clobetasol 0.05 % ointment See Rx Instructions .ROUTE .COMPLEX Qty: 60 1RF Dose Instruction: APPLY TO AFFECTED AREA TOPICALLY TWO TIMES A DAY Rx Instructions: APPLY TO AFFECTED AREA TOPICALLY TWO TIMES A DAY cetirizine 10 mg Tablet 10 mg PO DAILY Discharge Instructions Additional Instructions: Post EGD Instruction ?You had anesthesia for your EGD/stomach scope today.? For your safety, please do the following for the next twenty-four (24) hours: Do Not operate a motor vehicle (car, truck, motorcycle, etc.) Do Not drink alcoholic beverages or use any recreational drugs for the first 24 hours or while taking pain medications. The medications in your body may have a reaction that can be dangerous. Do Not make any important decisions or sign any important papers You have just had a gastroscopy (EGD) or upper GI tract examination. It is important for your smooth recovery that you carefully follow the recommendations below. Do not hesitate to call if any questions should arise about your anesthesia, condition, or care. -Symptoms you may experience during the next 24 hours: ?1. Mild abdominal pain or excessive gas or a bloated feeling which improves with rest, liquids, eating? slightly, and walking as tolerated. 2. Drowsiness and/or forgetfulness because of the medications you were given. 3. A sore throat which you can treat with throat lozenges or by gargling with salt water 4-5 times a day. 4. Redness at the site of your IV which you can treat with warm compresses. SPECIAL INSTRUCTIONS: 1. You may resume your previous diet in one hour. We recommend a light meal to start, then progress as tolerated. 2. Restart regular medications in one hour. 3. No aspirin or non-steroidal containing medication for 24 hrs. 4. No lifting over 20 pounds or strenuous activity for the first 24 hours after your procedure. After 24 hours there are no restrictions on your activity, but you may feel fatigued for a few days. -Findings: Gastric polyp/minor findings from chronic reflux. Path pending Follow-up in 2 weeks to review pathology report -Medications: Continue omeprazole and iron supplementation for now -Continue to follow lifestyle modifications: No alcohol, tobacco products, Aspirin or NSAID's (ibuprofen, Motrin, Naprosyn, aleve, etc).? Try to limit/avoid:? soda pop/any carbonated beverages, caffeine (including tea & chocolate), and acidic foods, (tomatoes, citrus, onions, peppermints) spicy or fried/fatty foods. Do not lie down for 30 minutes after eating, and do not eat 2 hours prior to bedtime. Avoid wearing tight fitting clothing/ belts. Call the office at [phone] (Office) or [phone] (Hospital), or go to the ER right away if you notice any of the followin. Vomiting blood and /or ?coffee ground? material. ?2. Worsening of abdominal pain or cramping. ?3. Trouble with breathing, cough, and/or fever (temperature above 101.5 F). 4. Increasing pain with swallowing. ?5. Chest pain. 6. Any new symptoms. 7. Worsening of the redness at the IV site Stand Alone Forms: Anesthesia Discharge InstChristian Harrison ([facility]) Activity:: See above Diet:: See above Discharge Orders Discharge Orders: Discharge Order (Routine); Ordered 02/20/24 Ordered By: Malou M Stoiber DS: Diagnosis Discharge Diagnosis (1) Hyperlipidemia: Status: Acute (2) Hypothyroidism: Status: Chronic (3) Seasonal allergies: Status: Chronic (4) GERD (gastroesophageal reflux disease): Status: Chronic (5) History of iron deficiency anemia: Status: Chronic (6) Lipoma of forearm: Status: Acute (7) Osteopenia of femoral neck: Status: Acute (8) Asthma: (9) Adenomatous polyp of stomach: Status: Acute
== END 2024-02-20 10:21 | disposition home or self-care (01) ==
PROVIDERS: PCP Student in an Organized Health Care Education/Training Program; Visit Provider Surgery
PROC: 0DJ68ZZ Inspection of Stomach, Via Natural or Artificial Opening Endoscopic (ICD-10-PCS; CPT 43235; principal; 2024-02-20 08:15)
DX: K21.9 Gastro-esophageal reflux disease without esophagitis; D64.9 Anemia, unspecified; K31.7 Polyp of stomach and duodenum; K22.89 Other specified disease of esophagus
CPT/HCPCS: 43239; 88305; J2001; J2704

== ENCOUNTER 2024-03-29 05:16 | Outpatient (CLI) | payer OTHER, SELFPAY ==
--- NOTE | 2024-03-29 09:47 | TELEFU_ITS ---
Date of service: 03/29/24 Time of Service: 08:30 Nutrition Note NOTE: Irina referred for nutrition visit mainly for concerns of High BMI and GERD. We reviewed traditional nutrition strategies to manage reflux- avoidance of spicy, greasy food, carbonated bevs, chocolate, caffeine, acidic foods and also any foods that may be personal triggers she experiences. We discussed avoiding drinking with meals, elevated head side of bed, not laying down after meals and other strategies to help prevent significant sx's. Lives at home and is with kids - does more of the cooking. Family stress anbd schedules can impact her food choices and meal timing/pattern. She started Noom last week and finding this helpful. We reviewed macros that will help trend towards weight loss but also highlighted nutrient density within her macro ranges. Suggested a plant-based diet and usin g lean animal protein to help meet high protein recommendations for help losing weight and preventing muscle loss. suggested 1600kcals per day with 120g protein, 160g total carbs and 54g fat. We reviewed these goals and how to track using some apps that are available or other online resources. Encouraged to plan a menu pattern first with how many meals/snacks and times she should ideally be eating these so she can have a template of what her goal eating pattern is. Then we looked at constructing menus that are limited for most of the day (no more than 3 menus for breakfast and lunch to cycle between) and then keeping dinner more flexible due to it being the family meal. Also suggested 0-2 PLANNED snacks per day that consist of protein and non- starchy veggie and no more than one serving starch. Highlighted strength training, adequate sleep and good stress mgt to help with her goals. She took my card to contact if she needs further follow up, tools/resources Time Spent in Nutritional Counseling and Treatment: 40 minutes
== END 2024-03-29 05:17 | disposition home or self-care (01) ==
LOC: DS 05:16
PROVIDERS: PCP Student in an Organized Health Care Education/Training Program; Visit Provider Dietitian, Registered
DX: Z71.3 Dietary counseling and surveillance (principal)
CPT/HCPCS: 00123; 97802

== ENCOUNTER 2024-05-14 06:11 | Day surgery (SDC) | payer OTHER, SELFPAY ==
[2024-05-14 06:19] VITALS: BP 134/86; PULSE 77; RESP 18; TEMP 36.1; O2SAT 96
[2024-05-14] MEDS: Normal Saline Flush 10 ML SYR IV (06:42)
--- NOTE | 2024-05-14 06:55 | W.ANESPRE ---
General Info Date of Service Date Performed: 05/14/24 Height: 5 ft 3 in Weight: 93.6 kg Body Mass Index (BMI): 36.5 Surgical Procedure: Operation Date: 05/14/24 07:35 Proposed Procedure Side Surgeon p Gastroscopy Malou Srivastava, Meds Allergies and Home Medications Allergies Allergy/AdvReac Type Severity Reaction Status Date / Time No Known Allergies Allergy Verified 05/14/24 06:26 Home Medication ?Medication ?Instructions ?Recorded multivitamin 1 tab PO DAILY 03/06/21 cetirizine 10 mg tablet 10 mg PO DAILY 05/18/21 albuterol sulfate 90 mcg/actuation 2 puff inhalation Q6H PRN 03/15/23 aerosol inhaler (Proventil HFA) shortness of breath or wheezing #8.5 grams estradiol 0.01% (0.1 mg/gram) 0.5 appful vaginal .COMPLEX #42.5 06/20/23 vaginal cream (Estrace) grams ferrous sulfate 325 mg (65 mg 325 mg PO DAILY 09/18/23 iron) tablet levothyroxine 75 mcg tablet 75 mcg PO DAILY #90 tabs 11/14/23 cholecalciferol (vitamin D3) 25 25 mcg PO DAILY 01/29/24 mcg (1,000 unit) capsule clobetasol 0.05 % topical ointment See Rx Instructions .Route 02/16/24 .COMPLEX #60 grams pantoprazole 40 mg tablet,delayed 40 mg PO DAILY #90 tabs 03/11/24 release (Protonix) Current Visit Medications: Current Medications Generic Name Dose Route Start Last Admin Trade Name Freq PRN Reason Stop Dose Admin Hyoscyamine Sulfate 0.125 mg 05/14/24 01:21 Hyoscyamine 0.125 Mg Sl/Oral/Chew SL 06/13/24 01:20 DIRECTED PRN Ringer's Solution 500 mls @ 80 mls/hr 05/14/24 06:00 IV 05/27/24 05:59 [facility] IV Miscellaneous Supplies 1 each 05/14/24 06:00 Iv Access IV 06/12/24 23:59 DIRECTED [facility] Ondansetron HCl 4 mg 05/14/24 01:21 Ondansetron 4 Mg/2 Ml Vial IVP 06/13/24 01:20 Q4H PRN PRN Nausea / Vomiting Sodium Chloride 0 ml 05/14/24 06:00 05/14/24 06:42 Normal Saline Flush 10 Ml Syr IV 06/12/24 23:59 10 ml PRN PRN Administration Sodium Chloride 0 ml 05/14/24 06:00 Normal Saline 10 Ml Vial IJ 06/12/24 23:59 DIRECTED PRN Sterile Water 0 ml 05/14/24 06:00 Water,Injection,Sterile 10 Ml Vial IJ 06/12/24 23:59 DIRECTED PRN PFSH Active Problems Active Problems: Problem Status Onset Code Obesity (BMI 30.0-34.9) Acute E66.9 Ken's esophagus determined by biopsy Acute K22.70 Lipoma of both upper extremities Acute D17.21, D17.22 Adenomatous polyp of stomach Acute D13.1 Blood donor Acute Z52.008 Low iron stores Acute R79.0 Well woman exam with routine gynecological exam Acute Z01.419 Osteopenia of femoral neck Acute M85.859 Lichen sclerosus Acute L90.0 Perimenopausal atrophic vaginitis Acute N95.2 Family history of premature CAD Chronic Z82.49 Menopause Chronic Z78.0 Vaginal discharge Acute N89.8 History of iron deficiency anemia Chronic Z86.2 GERD (gastroesophageal reflux disease) Chronic K21.9 Seasonal allergies Chronic 18 J30.2 Hyperlipidemia Acute E78.5 Hypothyroidism Chronic 12/01/19 E03.9 Medical History Medical History Tubular adenoma (~10/14/22) Dr. Sylvester Tinoco Chronic tonsillitis s/p tonsillectomy, 05/2021 Tonsil stone resolved, Hx .. now s/p tonsillectomy Phlegm in throat Thickened Phlegm, with tannish colored pebbly exudate (dissolves into powdery substance)(tonsilith?) + Hx allergies and sinus issues . [ ] ENT Allergic rhinitis Asthma 12/16/16 normal spirometry FVC 104% predicted FEV1 of 105% predicted FEV/FVC 85 with lower limit of normal of 70 ACT score 25 Surgical History Surgical History History of esophagogastroduodenoscopy (~02/2024) History of colonoscopy with polypectomy (~10/14/22) S/P tonsillectomy (05/18/21) Dr Persaud History of carpal tunnel surgery (~2010) both wrists Tobacco Smoking/Tobacco Use Status: Former Tobacco Use Alcohol Alcohol Intake: current Alcohol intake frequency: a few times a week Alcohol type: beer Substance Use Substance use: Never Substance use type: does not use Prental History History 2 Para 2 Hx # Term Pregnancies 2 Multiple births Hx # Pregnancies Ectopic pregnancies AB induced Hx Number of Living Children AB spontaneous Vital Signs and Lab Results Vital Signs Most Recent Vital Signs in EMR: Most Recent Vital Signs Temp Pulse Resp BP Pulse Ox 36.1 C L 77 18 134/86 96 05/14/24 06:19 05/14/24 06:19 05/14/24 06:19 05/14/24 06:19 05/14/24 06:19 Lab Results Blood Type / Crossmatch: No Data to Display Complete Blood Count: No Data to Display Complete Metabolic Panel: No Data to Display Liver Function Panel: No Data to Display Coagulation Panel: No Data to Display Cardiac Panel: No Data to Display Arterial Blood Gas: No Data to Display Venous Blood Gas: No Data to Display Pancreas Panel: No Data to Display Thyroid Panel: No Data to Display Infectious Disease: No Data to Display Blood Cultures: No Data to Display Toxicology Panel: No Data to Display Imaging and Studies Imaging and Studies Study information below may be from another EMR and interpreted by another provider. Please see original notes in EMR for more complete details. EKG Summary: EKG PATIENT NAME: Irina Arana UNIT #: [id number] ORDERING PROVIDER: Moraima Bush DO PRIMARY CARE PROVIDER: MORAIMA BUSH DO DATE/TIME OF SERVICE: 06/20/23 0958 : 1970 PERFORMING [facility]ATION: [facility] AP[facility]OV[facility] REPORT Exam: Resting ECG Reason for Exam: Baseline Patient Location: O HR:69 bpm ECG Measurements Heart Rate 69 AXIS HI 175 P 0 QRSd 95 QRS 2 QT 394 T3 QTc 422 Conclusion Sinus rhythm...normal P axis, V-rate 50- 99 Normal Electrocardiogram <Electronically signed by LUIS MIGUEL MALDONADO MD in OV> E-Sign Date: 06/20/23 E-Sign Time: 1030 Anesthesia Assessment and Plan Anesthesia History Personal History: No History of Anesthesia Complications Family History: No Family History of Anesthesia Complications Exercise Tolerance Exercise Tolerance: Metabolic Equivalents>4 Pertinent Negatives Pertinent Negatives: No Symptoms of GERD Cardiac & Pulmonary Exam Cardiac Exam: Normal S1/S2 Heart Sounds Pulmonary Exam: Clear Bilateral Breath Sounds Implantable Cardiac Device Does patient have a Pacemaker or an ICD?: No Airway Exam Known Difficult Airway: No Mallampati Class: 3 Mouth Opening: Normal (> 3cm) Thyromental Distance: Greater than 3 cm Neck Range of Motion: Full ROM Neck Circumference: Normal Teeth Condition: Normal Dentition ASA Classification ASA Score: ASA 2 Emergency Case?: No NPO Status NPO Status: NPO Clears >2 hours, Solids >8 hours Anesthesia Plan Resuscitation Status: Full Code Anesthesia Technique: General Anesthesia Airway Planned: Natural Airway Monitors Used: Standard Monitors
--- NOTE | 2024-05-14 07:31 | HPE_ITS ---
Date of service: 05/14/24 Time of Service: 07:31 Assessment and Plan Assessment and plan (1) Hyperlipidemia: Status: Acute (2) Hypothyroidism: Status: Chronic (3) Obesity (BMI 30.0-34.9): Status: Acute (4) GERD (gastroesophageal reflux disease): Status: Chronic (5) Ken's esophagus determined by biopsy: Status: Acute Assessment and plan: Informed consent is obtained for the procedural (explained in simple layman's terms that the pt. and/or family could understand) explaining risks vs benefits and alternatives to the procedure and consequences if we do not do the procedure and need/rational for the procedure. Risks include but are not limited to: bleeding, infection, perforation of esophagus, stomach, colon, small intestines, bronchus or trachea, or PTX. This would necessitate emergency surgery to repair the damage w/ possible ostomy; and other associated complications w/ the required surgery. Also complications of anesthesia including aspiration, NJ/CVA/. (6) History of iron deficiency anemia: Status: Chronic History of Present Illness Narrative: Patient is here today for EGD for polyp removal. We had changed her to Protonix and she does not really notice any difference. They not having any chest pain or shortness of breath, currently.? They are not experiencing any fever or chills.? They deny any productive cough or upper respiratory tract infection signs or symptoms.? They are not having abdominal pain, or nausea and vomiting.? They have not had any changes in medications, past medical history or past surgical history since previously being seen in the office. They have not had any accidents or have been in the ER since the clinic pre-operative evaluation. ??I reviewed the procedure with the patient today, including risks and benefits of the procedure, and what they could expect at home for recovery.? All questions are answered to the patient?s satisfaction today, and they are stable to proceed with the proposed procedure. Clinic visiti 03/11 Ken's esophagus determined by biopsy: Continue with lifestyle modifications: no alcohol, tobacco products, Aspirin or NSAID's (ibuprofen, Motrin, Naprosyn, aleve, etc), soda pop/any carbonated beverages, caffeine (including tea & chocolate), and acidic foods, (tomatoes, citrus, onions, peppermints) spicy or fried/fatty foods. Do not lie down for 30 minutes after eating, and do not eat 2 hours prior to bedtime. Avoid wearing tight fitting clothing/ belts wt loss will help -protonix. Rx placed -EGD q3 yrs 1. Gastroesophageal Reflux Disease (GERD). The long-standing reflux has led to the development of Ken's esophagus, which slightly increases the risk for esophageal cancer. The current medication, omeprazole 20 mg daily, will be switched to pantoprazole (Protonix) for better control. She was advised to avoid caffeine, alcohol, aspirin, ibuprofen, and Naprosyn, and to lose weight. An EGD will be scheduled within the next 6 months to remove the polyp. Informed consent is obtained for the procedural (explained in simple layman's terms that the pt. and/or family could understand) explaining risks vs benefits and alternatives to the procedure and consequences if we do not do the procedure and need/rational for the procedure. Risks include but are not limited to: bleeding, infection, perforation of esophagus, stomach, colon, small intestines, bronchus or trachea, or PTX. This would necessitate emergency surgery to repair the damage w/ possible ostomy; and other associated complications w/ the required surgery. Also complications of anesthesia including aspiration, NJ/CVA/. 2. Ken's Esophagus. The condition was identified due to chronic reflux. Although the risk of esophageal cancer is very low (0.1% to 0.3%), it is important to manage the reflux effectively. She will be switched to pantoprazole (Protonix). A repeat scope is recommended every 3 years to monitor the condition. Review of Systems All systems reviewed & are unremarkable except as noted in HPI and below PFSH All Active Problems Obesity (BMI 30.0-34.9) (Acute) Ken's esophagus determined by biopsy (Acute) Lipoma of both upper extremities (Acute) Adenomatous polyp of stomach (Acute) Blood donor (Acute) Low iron stores (Acute) Well woman exam with routine gynecological exam (Acute) Osteopenia of femoral neck (Acute) Lichen sclerosus (Acute) Perimenopausal atrophic vaginitis (Acute) Family history of premature CAD (Chronic) Baseline EKG, WNL, 06/2023.. Fa w/ NJ @ 43yo (9 stents) .. now healthy @ 73yo.. Hx hyperchol. 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 History of iron deficiency anemia (Chronic) RBC, HGB WNL, 05/15/21. Iron suppl .. [05/2017: Iron 84 (37-170)][01/2017:Iron 28] [01/2017: Ferritin 5 (264)] GERD (gastroesophageal reflux disease) (Chronic) severe per pt report .. esophagitis per pt description (EGD ~ 2004? @ [place]) .. [ ] repeat ([facility]) planned Seasonal allergies (Chronic 04/01/18) completed allergy injections (Hx EpiPen when receiving allergy injections) Hyperlipidemia (Acute) Low HDL .. started atorvastatin 02/13/17-09/26/17, ? why stopped Hypothyroidism (Chronic 12/01/19) WNL, 06/13/23 .. Increased to 75mcg 2' recent labs, 05/2022, ik.. Recent increase, re-check (6wks) @ 05/18 .. [November 2019: TSH 5.85, FT4 0.91][Mar 2020: TSH 2.34, FT4 1.05, FT3 3.3] Medical History Tubular adenoma (~10/14/22) Dr. Sylvester Tinoco Chronic tonsillitis s/p tonsillectomy, 05/2021 Tonsil stone resolved, Hx .. now s/p tonsillectomy Phlegm in throat Thickened Phlegm, with tannish colored pebbly exudate (dissolves into powdery substance)(tonsilith?) + Hx allergies and sinus issues . [ ] ENT Allergic rhinitis Asthma 12/16/16 normal spirometry FVC 104% predicted FEV1 of 105% predicted FEV/FVC 85 with lower limit of normal of 70 ACT score 25 Surgical History History of esophagogastroduodenoscopy (~02/2024) History of colonoscopy with polypectomy (~10/14/22) S/P tonsillectomy (05/18/21) Dr Persaud History of carpal tunnel surgery (~2010) both wrists Family History Maternal Grandfather Alcohol abuse Heart disease Paternal Grandfather Alcohol abuse Asthma Cancer pancreatic Maternal Grandmother Cancer spine Paternal Grandfather No problems noted. Paternal Grandmother Depression Diabetes Mother Diabetes Father Heart disease Hypertension Sister Hypertension Maternal Aunt Breast cancer Paternal Aunt Breast cancer Social History Smoking/Tobacco Use Status: Former Tobacco Use Quit Date: 07/14/10 Pack-years: 13 Tobacco: How many years used: 10 Smoking risk assessment performed?: Yes Alcohol Intake: current Alcohol Intake frequency: a few times a week Alcohol type: beer Drug use: Never Substance use type: does not use Adopted: No Caregiver/Support person: No Foster care: No Household members: spouse and other Details: Luke. 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 [employer] Pets and animals: Yes (1) Pets and animals: dog(s) Sexually active: Yes Do you think of yourself as: straight/heterosexual Current gender identity: female What is your relationship status?: How often do you talk on the phone with friends or family?: three or more times per week How often do you get together with friends or relatives?: three or more times per week Do you belong to any clubs or organized social groups?: no Panel score (0-1 are the most socially isolated patients): 2 What type of physical activity do you participate in: none Rita/Christianity: Denominational Special rita needs: No Seatbelt use: always Helmet use: Yes Drive intox or ride w/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: No Do you feel safe at home: Yes Do you feel safe in your relationship?: Yes Female Reproductive History Menstrual Menopause type: natural History History 2 Para 2 Hx # Term Pregnancies 2 Multiple births Hx # Pregnancies Ectopic pregnancies AB induced Hx Number of Living Children AB spontaneous Meds Allergies and Home Medications Allergies Allergy/AdvReac Type Severity Reaction Status Date / Time No Known Allergies Allergy Verified 05/14/24 06:26 Home Medications ?Medication ?Instructions ?Recorded ?Confirmed ?Type multivitamin 1 tab PO DAILY 03/06/21 05/14/24 History cetirizine 10 mg tablet 10 mg PO DAILY 05/18/21 05/14/24 History albuterol sulfate 90 mcg/actuation 2 puff inhalation Q6H PRN 03/15/23 05/14/24 Rx aerosol inhaler (Proventil HFA) shortness of breath or wheezing #8.5 grams estradiol 0.01% (0.1 mg/gram) 0.5 appful vaginal .COMPLEX #42.5 06/20/23 05/14/24 Rx vaginal cream (Estrace) grams ferrous sulfate 325 mg (65 mg 325 mg PO DAILY 09/18/23 05/14/24 History iron) tablet levothyroxine 75 mcg tablet 75 mcg PO DAILY #90 tabs 11/14/23 05/14/24 Rx cholecalciferol (vitamin D3) 25 25 mcg PO DAILY 01/29/24 05/14/24 History mcg (1,000 unit) capsule clobetasol 0.05 % topical ointment See Rx Instructions .Route 02/16/24 05/14/24 Rx .COMPLEX #60 grams pantoprazole 40 mg tablet,delayed 40 mg PO DAILY #90 tabs 03/11/24 05/14/24 Rx release (Protonix) Exam Narrative Exam Narrative: PHYSICAL EXAM GENERAL APPEARANCE: Alert, healthy appearance, oriented, x 3,? in no acute distress HYDRATION: Well hydrated HEAD, EYES, EARS, NECK, THROAT: Head is normocephalic, pupils equal, round, reactive to light and accommodation, ocular movement intact, sclera clear and no jaundice. ?Dentition intact. LUNGS: normal respiration/normal chest excursion. ?Clear to auscultation bilaterally. ?No wheeze. ?HEART: Regular rate and rhythm. no murmurs ABDOMEN: soft and non-tender to palpation.? Normal bowel sounds.? No hernias.? Results Last Vital Signs Temp 36.1 C L 05/14/24 06:19 Pulse 77 05/14/24 06:19 Resp 18 05/14/24 06:19 BP 134/86 05/14/24 06:19 Pulse Ox 96 05/14/24 06:19 Time Spent Time spent with Patient: 40-54 minutes Time was spent: preparing to see the patient(eg.review tests), obtaining and/or reviewing separately otained hiistory, ordering medications,tests, procedures, referring, communicating with other health client care representative, indepentently interpreting results, counseling the patient, care coordination and other
[2024-05-14 07:34] VITALS: BMI 36.5
--- NOTE | 2024-05-14 08:00 | STOM_PTH ---
PATIENT: Irina Arana LOC: [facility] U#:[id number] AGE/SX: 53/F ROOM: RE05/14/[address]: Malou Srivastava : 1970 BED: DIS: 05/14/2024 SPEC #: [id number] RECD: 05/14/24 12:39 STATUS: ALEXIS REQ #: [id number] TASNEEM: 05/14/24 08:[address]: Malou Srivastava DEPT: Surgical Specimen RECD BY: Roseline Payne ENTERED: 05/14/24 12:40 SP TYPE: STOMACH OTHR DR: Moraima Bush DO Tissues: 1 - STOMACH BIOPSY Procedures: GROSS AND MICRO LEVEL 4 Comments: [id number]
[2024-05-14 08:12] VITALS: BP 129/68; PULSE 72; RESP 16; TEMP 36.2; O2SAT 93
--- NOTE | 2024-05-14 08:12 | ENDO_ITS ---
Date of service: 05/14/24 Time of Service: 08:12 Endoscopy Report DATE OF PROCEDURE: 05/14/24 PRE-OP DIAGNOSIS: Pyloric polyp POST-OP DIAGNOSIS: same ANESTHESIA TYPE: General:No Airway ESTIMATED BLOOD LOSS: 1 PATHOLOGY: other COMPLICATIONS: None DISPOSITION: same day PROCEDURE DESCRIPTION: Informed consent was obtained from the pt; explaining the benefits and Risks: bleeding, infections, perforations {which could require surgery or antibiotics and prolonged hospital stay}, or ostomy, and complications of anaesthesia, xochilt aspiration). The patient was take to the procedure room and placed in a supine position. Monitors were applied and a time out was done. The patients name, date of , procedure type, allergies to medications and metal in their body was reviewed. A bite block was placed and the patient was sedated. Once sedated and comfortable an Olympus gastroscope (see RN notes for scope #) was advanced through the oropharynx which was grossly normal, and passed into the esophagus. The proximal and mid-esophagus were normal. The distal esophagus does not show any: dilation/strictures/varices/erosions or ulcers/bleeding noted. The scope was advanced into the stomach and through the pylorus into the duodenal bulb. The duodenum was noted to be normal. The polyp is noted in the prepyloric channel. She has a 1.5 cm polyp. It is removed with a hot snare. A clip was placed of the over the defect. All specimen is retrieved. No bleeding is noted. There were no gastritis/gastropathy/ ulcers/masses noted. The scope was retroflexed. The cardia and fundus were noted to be normal. The scope was removed and the patient was woken up and taken back to [facility] in stable condition.
--- NOTE | 2024-05-14 08:22 | PDOC.DSDIS_ITS ---
Date of service: 05/14/24 Time of Service: 08:22 Discharge Plan Disposition Patient Disposition: Home Discharge Details Reason For Visit: EGD Attending Provider: Malou Srivastava Primary Care Provider: Moraima Bush Home Meds and New Rx's Prescriptions: No Action estradiol [Estrace] 0.01 % (0.1 mg/gram) cream 0.5 appful vaginal .COMPLEX Qty: 42.5 4RF Rx Instructions: 0.5 appful vaginal daily for 2 weeks then twice weekly; ferrous sulfate 325 mg (65 mg iron) tablet 325 mg PO DAILY pantoprazole [Protonix] 40 mg tablet,delayed release (DR/EC) 40 mg PO DAILY Qty: 90 4RF cholecalciferol (vitamin D3) 25 mcg (1,000 unit) capsule 25 mcg PO DAILY multivitamin Tablet 1 tab PO DAILY albuterol sulfate [Proventil HFA] 90 mcg/actuation HFA aerosol inhaler 2 puff inhalation Q6H PRN (Reason: shortness of breath or wheezing) Qty: 8.5 0RF levothyroxine 75 mcg tablet 75 mcg PO DAILY Qty: 90 3RF clobetasol 0.05 % ointment See Rx Instructions .ROUTE .COMPLEX Qty: 60 1RF Dose Instruction: APPLY TO AFFECTED AREA TOPICALLY TWO TIMES A DAY Rx Instructions: APPLY TO AFFECTED AREA TOPICALLY TWO TIMES A DAY cetirizine 10 mg Tablet 10 mg PO DAILY Discharge Instructions Additional Instructions: Post EGD Instruction ?You had anesthesia for your EGD/stomach scope today.? For your safety, please do the following for the next twenty-four (24) hours: Do Not operate a motor vehicle (car, truck, motorcycle, etc.) Do Not drink alcoholic beverages or use any recreational drugs for the first 24 hours or while taking pain medications. The medications in your body may have a reaction that can be dangerous. Do Not make any important decisions or sign any important papers You have just had a gastroscopy (EGD) or upper GI tract examination. It is important for your smooth recovery that you carefully follow the recommendations below. Do not hesitate to call if any questions should arise about your anesthesia, condition, or care. -Symptoms you may experience during the next 24 hours: ?1. Mild abdominal pain or excessive gas or a bloated feeling which improves with rest, liquids, eating? slightly, and walking as tolerated. 2. Drowsiness and/or forgetfulness because of the medications you were given. 3. A sore throat which you can treat with throat lozenges or by gargling with s alt water 4-5 times a day. 4. Redness at the site of your IV which you can treat with warm compresses. SPECIAL INSTRUCTIONS: 1. You may resume your previous diet in one hour. We recommend a light meal to start, then progress as tolerated. 2. Restart regular medications in one hour. 3. No aspirin or non-steroidal containing medication for 24 hrs. 4. No lifting over 20 pounds or strenuous activity for the first 24 hours after your procedure. After 24 hours there are no restrictions on your activity, but you may feel fatigued for a few days. -Findings: Polyp removed A clip was placed, you may notice it passing your stool in 3 to 5 days time -Medications: Continue Protonix -Continue to follow lifestyle modifications: No alcohol, tobacco products, Aspirin or NSAID's (ibuprofen, Motrin, Naprosyn, aleve, etc).?NO: caffeine (including tea & chocolate), and acidic foods, (tomatoes, citrus, onions, peppermints) spicy or fried/fatty foods for the next 72hrs. eat a very soft bland diet for the next 72 hours Follow up: Repeat EGD in 2 yrs time. Call the office at [phone] (Office) or [phone] (Hospital), or go to the ER right away if you notice any of the followin. Vomiting blood and /or ?coffee ground? material. ?2. Worsening of abdominal pain or cramping. ?3. Trouble with breathing, cough, and/or fever (temperature above 101.5 F). 4. Increasing pain with swallowing. ?5. Chest pain. 6. Any new symptoms. 7. Worsening of the redness at the IV site Stand Alone Forms: Anesthesia Discharge Inst., [facility] ([facility]) Activity:: See above Diet:: See above Discharge Orders Discharge Orders: Discharge Order (Routine); Ordered 05/14/24 Ordered By: Malou Srivastava DS: Diagnosis Discharge Diagnosis (1) Hyperlipidemia: Status: Acute (2) Hypothyroidism: Status: Chronic (3) Obesity (BMI 30.0-34.9): Status: Acute (4) GERD (gastroesophageal reflux disease): Status: Chronic (5) Ken's esophagus determined by biopsy: Status: Acute (6) History of iron deficiency anemia: Status: Chronic (7) Adenomatous polyp of stomach: Status: Acute Asessment and Plan: Patient is seen and examined after they are endoscopy.? Patient has minimal sore throat.? They have been able to tolerate liquids.? They do not have any nausea vomiting.? They are not having any chest pain or shortness of breath.? They have been able to pass gas and are not having any abdominal pain or distention.? They have not vomited any blood.? The vital signs have been stable-see nursing notes. We discussed findings on their endoscopy. We reviewed the importance of lifestyle modification-see discharge instructions We reviewed any new medications that the patient may be prescribed-see discharge instructions Patient will either be sent a letter with the biopsy results or follow-up in the office-see discharge instructions. Patient was given explicit instructions to follow-up regarding post endoscopy- refer to discharge Patient verbalized understanding and discharged in stable and satisfactory condition.? See nursing notes.
[2024-05-14 08:42] VITALS: BP 127/77; PULSE 73; RESP 16; TEMP 36.4; O2SAT 98
--- NOTE | 2024-05-14 08:59 | W.ANESPOSTOP ---
Postoperative Evaluation Date, Time and Location Date Performed: 05/14/24 Time Performed: 08:16 Patient Location: Day Surgery Unit Vital Signs Most Recent Imported Vital Signs: Most Recent Vital Signs Temp Pulse Resp BP Pulse Ox 36.4 C L 73 16 127/77 98 05/14/24 08:42 05/14/24 08:42 05/14/24 08:42 05/14/24 08:42 05/14/24 08:42 Pain Score Most Recent Pain Score: Most Recent Pain Score Pain Level 0 05/14/24 08:42 Assessment Mental Status: Awake (Alert & Oriented to Patient Baseline) Airway and Respiratory Function: Patent airway with normal (patient baseline) respiratory exam Cardiovascular Function: Hemodynamically Stable Hydration Status: Adequately Hydrated Nausea & Vomiting: No Nausea or Vomiting Pain: Pt. Denies Any Pain Peripheral Nerve Block: Patient did not receive a nerve block
== END 2024-05-14 08:54 | disposition home or self-care (01) ==
PROVIDERS: PCP Student in an Organized Health Care Education/Training Program; Visit Provider Surgery
PROC: 0DJ68ZZ Inspection of Stomach, Via Natural or Artificial Opening Endoscopic (ICD-10-PCS; CPT 43235; principal; 2024-05-14 07:30)
DX: K22.70 Barrett's esophagus without dysplasia; K31.7 Polyp of stomach and duodenum; K21.9 Gastro-esophageal reflux disease without esophagitis
CPT/HCPCS: 43239; 88305; J2704

== ENCOUNTER 2024-08-31 10:56 | Emergency (ER) | payer OTHER, SELFPAY ==
--- NOTE | 2024-08-31 11:00 | RT.EKG_ITS ---
APPROVED REPORT Exam: Resting ECG Reason for Exam: L neck pain Patient Location: E HR:74 bpm ECG Measurements Heart Rate 74 AXIS NE 165 P 13 QRSd 91 QRS -2 QT 389 T 14 QTc 433 Conclusion Sinus rhythm 74 normal axis no stemi
[2024-08-31 11:07] VITALS: BP 150/102; PULSE 75; RESP 14; TEMP 36.5; O2SAT 98
[2024-08-31] MEDS: Ketorolac 15 MG/ML VIAL 10 MG IVP (12:12)
[2024-08-31] MEDS: Normal Saline 1,000 ML 1000 ML IV (12:13)
[2024-08-31] MEDS: MAGNESIUM SULFATE 2 GM/50 ML BAG IVINF (12:13)
[2024-08-31 12:26] LABS: Abs Immature Grans 0.02 10^3/uL (0.0-0.06); Absolute Basophil Count 0.05 10^3/uL (0.0-0.2); Absolute Eosinophil Count 0.08 10^3/uL (0.0-0.7); Absolute Lymphocyte Count 1.91 10^3/uL (1.2-3.4); Absolute Monocyte Count 0.58 10^3/uL (0.1-0.8); Absolute Neutrophil Count 3.87 10^3/uL (1.2-6.7); Basophils % 0.8 %; Eosinophils % 1.2 %; HCT 41.2 % (36.0-46.0); HGB 13.6 g/dL (11.2-15.7); Immature Grans % 0.3 %; Lymphocytes % 29.3 %; MCH 31.7 pg (27.0-33.0); MCV 96 fL (80-95); MPV 10.5 fL (8.0-11.0); Monocytes % 8.9 %; Neutrophils % 59.5 %; Platelet Count 233 10^3/uL (130-400); RBC 4.29 10^6/uL (3.93-5.22); RDW 13.1 % (11.7-14.6); RDW-SD 46.4 fL; WBC 6.51 10^3/uL (4.4-10.8)
[2024-08-31 12:45] LABS: ALT 44 U/L (14-59); AST 26 U/L (15-37); Albumin 3.8 g/dL (3.4-5.0); Alkaline Phosphatase 113 U/L (46-116); Anion Gap 6.2 mmol/L (3-11); BUN 12 mg/dL (7-18); Bilirubin, Total 0.36 mg/dL (0.2-1.0); CO2 28.8 mmol/L (21.0-32.0); CREATININE 0.8 mg/dL (0.55-1.02); Calcium 9.1 mg/dL (8.5-10.1); Chloride 107 mmol/L (98-107); Estimated GFR 86.96 (mL/min/1.73m2); Glucose 90 mg/dL (74-106); Sodium 142 mmol/L (136-145); Total Protein 7.7 g/dL (6.4-8.2)
[2024-08-31 12:49] VITALS: BP 128/80; PULSE 74; RESP 15; TEMP 36.5; O2SAT 98
[2024-08-31 12:52] VITALS: RESP 15
--- NOTE | 2024-08-31 13:10 | DI.CT_ITS ---
Exam(s) CT HEAD WO EXAM: CT HEAD WO CLINICAL HISTORY: headache. TECHNIQUE: Imaging Protocol: Axial computed tomography images with coronal and sagittal reformatted images were created and reviewed COMPARISON: No exams were available for comparison FINDINGS: Ventricles and Extra axial spaces: Normal in size and morphology for the patient's age. Hemorrhage: None. Cerebral parenchyma: Normal. Midline shift: None. Brainstem/Cerebellum: Normal. Calvarium: Normal. Visualized Paranasal sinuses/Mastoids: Clear. Soft Tissues: Unremarkable. IMPRESSION: No acute intracranial process. RADIATION DOSE DELIVERED: 907.8mGy.cm Total DLP DATA REPOSITORY: All CT scans at this facility are submitted to the National Radiology Data Registry (NRDR) Dose Index Registry (DIR) with the [employer] ([employer]). RADIATION OPTIMIZATION: All CT scans at this facility use at least one of these dose optimization te chniques: automated exposure control; mA and/or kV adjustment per patient size (includes targeted exa ms where dose is matched to clinical indication); or iterative reconstruction.
[2024-08-31 14:18] VITALS: BP 124/76; PULSE 73; TEMP 36.4; O2SAT 98
[2024-08-31 14:29] VITALS: BP 124/76; PULSE 73; RESP 18; TEMP 36.4; O2SAT 98
--- NOTE | 2024-08-31 16:49 | ED.GENADUL_ITS ---
Discharge Plan Disposition Patient Disposition: Home Condition: Stable Discharge Details Clinical Impression: Headache, Alteration in vision Primary Care Provider: Shan Núñez ED Provider: Delbert Maher Home Meds and New Rx's Prescriptions: No Action ferrous sulfate 325 mg (65 mg iron) tablet 325 mg PO DAILY pantoprazole [Protonix] 40 mg tablet,delayed release (DR/EC) 40 mg PO DAILY Qty: 90 4RF estradiol [Estrace] 0.01 % (0.1 mg/gram) cream 0.5 appful vaginal .COMPLEX Qty: 42.5 4RF Rx Instructions: 0.5 appful vaginal daily for 2 weeks then twice weekly; atorvastatin 20 mg tablet 20 mg PO QHS Qty: 90 3RF cholecalciferol (vitamin D3) 25 mcg (1,000 unit) capsule 25 mcg PO DAILY multivitamin Tablet 1 tab PO DAILY albuterol sulfate [Proventil HFA] 90 mcg/actuation HFA aerosol inhaler 2 puff inhalation Q6H PRN (Reason: shortness of breath or wheezing) Qty: 8.5 0RF levothyroxine 75 mcg tablet 75 mcg PO DAILY Qty: 90 3RF clobetasol 0.05 % ointment See Rx Instructions .ROUTE .COMPLEX Qty: 60 1RF Dose Instruction: APPLY TO AFFECTED AREA TOPICALLY TWO TIMES A DAY Rx Instructions: APPLY TO AFFECTED AREA TOPICALLY TWO TIMES A DAY cetirizine 10 mg Tablet 10 mg PO DAILY Discharge Instructions Additional Instructions: ED WORK UP IS UNREMARKABLE, LABS AND HEAD CT IS NORMAL PLEASE INCREASE WATER INTAKE CONTINUE MEDICATIONS AND FOLLOW UP WITH YOUR PCP HPI General Date/Time Provider Initiated Documentation: 08/31/24 11:28 . Limitations to Documentation: no limitations . Information obtained by: patient . HPI Narrative: 53-year-old gentleman with past medical history of hyperlipidemia, hypertension presents for evaluation of headache. She reports that she was recently diagnosed with hyperlipidemia and started on atorvastatin. She states that she is concerned that she must have a blood clot because she did receive the COVID vaccination and she knows that the COVID-vaccine does cause blood clots. And she knows that the COVID-vaccine also increases protein in her body and that the lipoprotein that measured high must be from the COVID-vaccine. She reports that she has had 1 month of headache. Not acute onset, not related to trauma. She reports that she has some tension particularly on the left side of her neck. Denies any chest pain shortness of breath. She reports some mild nausea. She reports some flashes in her left eye that have been occurring over the last few days. She denies any blurry vision, eye pain or eye trauma. She denies any decrease in states that she can see just fine. Related Data Home Medications ?Medication ?Instructions ?Recorded ?Confirmed multivitamin 1 tab PO DAILY 03/06/21 08/31/24 cetirizine 10 mg tablet 10 mg PO DAILY 05/18/21 08/31/24 albuterol sulfate 90 mcg/actuation 2 puff inhalation Q6H PRN 03/15/23 08/31/24 aerosol inhaler (Proventil HFA) shortness of breath or wheezing #8.5 grams ferrous sulfate 325 mg (65 mg 325 mg PO DAILY 09/18/23 08/31/24 iron) tablet levothyroxine 75 mcg tablet 75 mcg PO DAILY #90 tabs 11/14/23 08/31/24 cholecalciferol (vitamin D3) 25 25 mcg PO DAILY 01/29/24 08/31/24 mcg (1,000 unit) capsule clobetasol 0.05 % topical ointment See Rx Instructions .Route 02/16/24 08/31/24 .COMPLEX #60 grams estradiol 0.01% (0.1 mg/gram) 0.5 appful vaginal .COMPLEX #42.5 06/22/24 08/31/24 vaginal cream (Estrace) grams pantoprazole 40 mg tablet,delayed 40 mg PO DAILY #90 tabs 06/22/24 08/31/24 release (Protonix) atorvastatin 20 mg tablet 20 mg PO QHS #90 tabs 08/09/24 08/31/24 Previous Rx's ?Medication ?Instructions ?Recorded albuterol sulfate 90 mcg/actuation 2 puff inhalation Q6H PRN 03/15/23 aerosol inhaler (Proventil HFA) shortness of breath or wheezing #8.5 grams levothyroxine 75 mcg tablet 75 mcg PO DAILY #90 tabs 11/14/23 clobetasol 0.05 % topical ointment See Rx Instructions .Route 02/16/24 .COMPLEX #60 grams estradiol 0.01% (0.1 mg/gram) 0.5 appful vaginal .COMPLEX #42.5 06/22/24 vaginal cream (Estrace) grams pantoprazole 40 mg tablet,delayed 40 mg PO DAILY #90 tabs 06/22/24 release (Protonix) atorvastatin 20 mg tablet 20 mg PO QHS #90 tabs 08/09/24 Allergies Allergy/AdvReac Type Severity Reaction Status Date / Time No Known Allergies Allergy Verified 08/31/24 11:10 General Stated Complaint: GenMedical CHRISTI: 3 Exam Narrative Exam Narrative: Review of Systems: All systems reviewed & are unremarkable except as noted in HPI and below Well-developed, no acute distress NCAT PERRL, normal conjunctiva Visual broderick intact, normal range of motion of the eye, no nystagmus Acuity normal RRR no murmur Unlabored respiratory effort clear bilaterally Nondistended abdomen soft nontender no focal neurologic deficits, cranial nerves intact + Anxious Course Vital Signs Vital signs: Vital Signs Temperature 36.5 C 08/31/24 11:07 Pulse 75 08/31/24 11:07 Respiratory Rate 14 08/31/24 11:07 Blood Pressure 150/102 H 08/31/24 11:07 Pulse Oximetry 98 08/31/24 11:07 Temperature 36.4 C L 08/31/24 14:29 Temperature Source Oral 08/31/24 14:18 Pulse 73 08/31/24 14:29 Respiratory Rate 18 08/31/24 14:29 Respiratory Effort Normal, Non-Labored 08/31/24 12:52 Respiratory Depth Normal 08/31/24 12:52 Respiratory Pattern Normal 08/31/24 12:52 Blood Pressure 124/76 08/31/24 14:29 Blood Pressure Position Sitting 08/31/24 12:49 Pulse Oximetry 98 08/31/24 14:29 Oxygen Delivery Method Room Air 08/31/24 14:18 Oxygen Flow Rate 0 08/31/24 14:18 Pain Level 0 08/31/24 14:29 Lab/Test Results Lab/Test Results: Laboratory Tests Range/Units 08/31/24 12:20 WBC (4.4-10.8) 10^3/uL 6.51 RBC (3.93-5.22) 10^6/uL 4.29 Hgb (11.2-15.7) g/dL 13.6 Hct (36.0-46.0) % 41.2 MCV (80-95) fL 96 H MCH (27.0-33.0) pg 31.7 MCHC (32.0-36.0) % 33.0 RDW (11.7-14.6) % 13.1 Plt Count (130-400) 10^3/uL 233 MPV (8.0-11.0) fL 10.5 Immature Gran % % 0.3 Neutrophils % % 59.5 Lymphocytes % % 29.3 Monocytes % % 8.9 Eosinophils % % 1.2 Basophils % % 0.8 Nucleated RBC % (0.0-0.3) % 0.0 Absolute Neutrophils (1.2-6.7) 10^3/uL 3.87 Absolute Lymphocytes (1.2-3.4) 10^3/uL 1.91 Absolute Monocytes (0.1-0.8) 10^3/uL 0.58 Absolute Eosinophils (0.0-0.7) 10^3/uL 0.08 Absolute Basophils (0.0-0.2) 10^3/uL 0.05 Sodium (136-145) mmol/L 142 Potassium (3.5-5.1) mmol/L 4.0 Chloride (98-107) mmol/L 107 Carbon Dioxide (21.0-32.0) mmol/L 28.8 Anion Gap (3-11) mmol/L 6.2 BUN (7-18) mg/dL 12 Creatinine (0.55-1.02) mg/dL 0.8 Est GFR (CKD-EPI 2020) (mL/min/1.73m2) 86.96 Glucose (74-106) mg/dL 90 Calcium (8.5-10.1) mg/dL 9.1 Total Bilirubin (0.2-1.0) mg/dL 0.36 AST (15-37) U/L 26 ALT (14-59) U/L 44 Alkaline Phosphatase (46-116) U/L 113 Total Protein (6.4-8.2) g/dL 7.7 Albumin (3.4-5.0) g/dL 3.8 Medical Decision Making Emergent evaluation of headache. Patient has had ongoing headache for a month. No focal neurologic deficits. Initial blood pressure was noted to be slightly elevated, but has improved in the room. Have a low suspicion for hypertensive emergency or intracranial process. The patient is very concerned that she has a blood clot related to the COVID vaccination though I do not suspect this to be a concern. She has no evidence of acute blood clot, CVA or DVT or otherwise. She has a family history of hyperlipidemia and coronary disease so I suspect that this is the etiology of her elevated lipoprotein a and again not the COVID- vaccine. The patient has a nonfocal neurologic exam. Given her ongoing headache, lab work was obtained and a CT image of her head was also obtained. This was unremarkable. She was given some IV fluids and magnesium which resolved her headache. I suspect that the visual changes were likely secondary to some migrainous symptomology. I do recommend that she follow-up with an eye doctor. The patient is stable for discharged in good condition. 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 Fa w/ MD @ 43yo (9 stents) .. now healthy @ 73yo.. Hx hyperchol. 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 History of iron deficiency anemia (Chronic) RBC, HGB WNL, 05/15/21. Iron suppl .. [05/2017: Iron 84 (37-170)][01/2017:Iron 28] [01/2017: Ferritin 5 ()] GERD (gastroesophageal reflux disease) (Chronic) severe per pt report .. esophagitis per pt description (EGD ~ 2004? @ [facility]) .. [ ] repeat ([facility]) planned Seasonal allergies (Chronic 09/19/18) completed allergy injections (Hx EpiPen when receiving allergy injections) Hyperlipidemia (Acute) Low HDL .. started atorvastatin 02/13/17-09/26/17, ? why stopped Hypothyroidism (Chronic 12/01/19) WNL, 06/13/23 .. Increased to 75mcg 2' recent labs, 05/2022, ik.. Recent increase, re-check (6wks) @ 05/18 .. [November 2019: TSH 5.85, FT4 0.91][Mar 2020: TSH 2.34, FT4 1.05, FT3 3.3] Medical History Tubular adenoma (~10/14/22) Dr. Sylvester Tinoco Chronic tonsillitis s/p tonsillectomy, 05/2021 Tonsil stone resolved, Hx .. now s/p tonsillectomy Phlegm in throat Thickened Phlegm, with tannish colored pebbly exudate (dissolves into powdery substance)(tonsilith?) + Hx allergies and sinus issues . [ ] ENT Allergic rhinitis Asthma 12/16/16 normal spirometry FVC 104% predicted FEV1 of 105% predicted FEV/FVC 85 with lower limit of normal of 70 ACT score 25 Surgical History (Updated 05/14/24 @ 14:27 by Giuliana Becker) History of esophagogastroduodenoscopy (~05/2024) History of colonoscopy with polypectomy (~10/14/22) S/P tonsillectomy (05/18/21) Dr Persaud History of carpal tunnel surgery (~2010) both wrists Family History Maternal Grandfather Alcohol abuse Heart disease Paternal Grandfather Alcohol abuse Asthma Cancer pancreatic Maternal Grandmother Cancer spine Paternal Grandfather No problems noted. Paternal Grandmother Depression Diabetes Mother Diabetes Father Heart disease Hypertension Sister Hypertension Maternal Aunt Breast cancer Paternal Aunt Breast cancer Social History Smoking/Tobacco Use Status: Former Tobacco Use Quit Date: 07/14/10 Pack-years: 13 Tobacco: How many years used: 10 Smoking risk assessment performed?: Yes Alcohol Intake: current Alcohol Intake frequency: a few times a week Alcohol type: beer Drug use: Never Substance use type: does not use Adopted: No Caregiver/Support person: No Foster care: No Household members: spouse and other Details: Osvaldo. 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 [employer] Pets and animals: Yes (1) Pets and animals: dog(s) Sexually active: Yes Do you think of yourself as: straight/heterosexual Current gender identity: female What is your relationship status?: How often do you talk on the phone with friends or family?: three or more times per week How often do you get together with friends or relatives?: three or more times per week Do you belong to any clubs or organized social groups?: no Panel score (0-1 are the most socially isolated patients): 2 What type of physical activity do you participate in: none Rita/Mormon: Restoration Special rita needs: No Seatbelt use: always Helmet use: Yes Drive intox or ride w/intox 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: No Do you feel safe at home: Yes Do you feel safe in your relationship?: Yes Female Reproductive History Menstrual Menopause type: natural History History 2 Para 2 Hx # Term Pregnancies 2 Multiple births Hx # Pregnancies Ectopic pregnancies AB induced Hx Number of Living Children AB spontaneous PAWSS Have you Been Recently Intoxicated or Drunk Within the Last 30 days?: No Have you Ever Experienced Previous Episodes of Alcohol Withdrawal?: No Have you ever Experienced Withdrawal Seizures?: No Have you ever Experienced Delirium Tremens(DT)s?: No Have you ever undergone Alcohol Rehabilitation Treatment (i.e, inpt ot outpatient treatment programs)?: No Have you ever Experienced Blackouts?: No Have you ever Combined Alcohol with other Downers within the last 90 days?: No Have you ever Combined Alcohol with any other Substance of Abuse during the last 90 days?: No Positive Blood Alcohol level on Presentation? [PCS.BAL]: No Evidence of Increased Autonomic Activity (i.e. HR>120, tremor, sweating, agitation, nausea)?: No Result: 0
== END 2024-08-31 14:33 | disposition home or self-care (01) ==
PROVIDERS: Emergency Provider Emergency Medicine; PCP Family Medicine
DX: R51.9 Headache, unspecified (principal); H53.15 Visual distortions of shape and size; I10 Essential (primary) hypertension; E78.5 Hyperlipidemia, unspecified
CPT/HCPCS: 80053; 93005; 96365; 96375; 99285; 70450; 85025; 93010; 99284; J1885; J3475

== ENCOUNTER 2025-01-03 02:38 | Outpatient (CLI) | payer OTHER, SELFPAY ==
--- NOTE | 2025-01-03 15:45 | DI.MAMMO_ITS ---
Exam(s) MAMMO SCREENING EXAM: MAMMO SCREENING CLINICAL HISTORY: screening TECHNIQUE: Mammograms were interpreted according to the usual protocol including computer analysis with CAD system, tomosynthesis and C-view imaging. COMPARISON: 2015 through 2022 FINDINGS: The breasts are composed of scattered fibroglandular densities, Breast Density category B. No suspicious masses or suspicious microcalcifications are seen. No skin thickening or abnormal axillary lymph nodes are seen. There has been no significant change from prior exams. IMPRESSION: BI-RADS Category 1, Negative mammogram Yearly screening mammography is recommended. Breast Density - Category B - There are scattered areas of fibroglandular density. Breast density Category C or D implies that the patient has dense breast tissue. Dense breast tissue can make it harder to find cancer on a mammogram. Dense breast tissue is also associated with an increased risk of breast cancer. This information about the result of the mammogram report was provided to the patient to raise their awareness. Use this report when you speak with the patient about their risks for breast cancer, which includes their family history. At that time, you may recommend additional screening tests (Ultrasound or MRI) as these tests may add significant information. A negative radiographic report should not delay biopsy if a dominant or clinically suspicious mass is present. Up to ten percent of cancers are not identified on mammography. A negative report may reinforce clinical impression. Adenosis and dense breasts may obscure an underlying neoplasm. False positive reports average 6 to 10%. Patient will receive a letter notifying them of these results.
== END 2025-01-03 02:58 ==
LOC: DI 02:38
PROVIDERS: PCP Family Medicine; Visit Provider Obstetrics & Gynecology
DX: Z12.31 Encounter for screening mammogram for malignant neoplasm of breast (principal); R92.323 Mammographic fibroglandular density, bilateral breasts
CPT/HCPCS: 77063; 77067